=== PATIENT | female | born 1955 | race Caucasian/White ===

== ENCOUNTER → 2017-01-30 | Day surgery (SDC) | payer OTHER ==
[~2017-01-30] MED LIST: ALLEGRA ALLERG180 MG PO; ANASTROZOLE1 MG PO; BACTRIM DS TAB1 EACH PO; CALCIUM 600 +1 EAC1 PO; CHROMIUM PIC1000 MCG PO; CIPRO500 MG PO; COLACE100 MG PO; COREG6.25 MG PO; CRANBERRY500 M1 PO; DIPHENHYDRAMINE25 M3 PO; EYE DROP15 ML OP; FEMARA2.5 MG PO; FLAGYL500 MG PO; HUMALOG100 UNIT/1 SUBQ; HUMALOG100 UNIT/2 SUBQ; HYDRALAZINE 2525 MG PO; LEVALBUTER1.25 MG/0. INH; LEVAQUIN 500 M500 M2 PO; LEVEMIR SUBQ; MEGARED OMEGA-1 EAC1 PO; METFORMIN HCL500 MG PO; NEURONTIN 300M300 M2 PO; NOVOLOG100 UNIT/1 SUBQ; OXYCODONE HCL 55 MG PO; PREDNISONE 20 M20 MG PO; PRINIVIL20 M1 PO; SELENIUM200 MC3 PO; TOUJEO MAX300 UNIT/1 SUBQ; TRAMADOL 50 MG50 MG PO; TURMERIC500 M1 PO; VITAMIN D3400 UNIT PO; XGEVA120 MG/1.7 SQ; XOPENEX 0.63 MG/3 M1 INH
[2017-01-30 09:26] LABS: ALBUMIN 3.6 g/dL (3.4-5.0); CREATININE 0.9 mg/dL (0.6-1.3); POTASSIUM 4.7 mmol/L (3.5-5.1); TOTAL BILIRUBIN 0.5 mg/dL (<0.1-1.0); TOTAL PROTEIN 7.5 g/dL (6.4-8.2)
--- NOTE | 2017-02-08 07:41 | OP ---
[address] [address] OPERATIVE REPORT Name: NBAMICHELLE CHENCHO Room: [facility].#: [id number] Admission: 01/30/17 Attend Phys: Sugar Reich DO Discharge: Date of : 53 Report #: [id number] THIS REPORT FOR: //name// CC: Lisa Kenneyissa Elie DATE OF SERVICE: 01/30/2017 INDICATIONS: The patient is a 61-year-old female with history of breast cancer, status post bilateral mastectomy here today for a right-sided chemo port insertion accessed through the right internal jugular vein. Risks of the surgery were discussed to include bleeding, infection, injury to surrounding structures including possible pneumothorax with need for a chest tube, and risk of anesthesia. She acknowledges her understanding and wishes to proceed with surgery. Written and verbal consent were both obtained. DESCRIPTION OF PROCEDURE: After entering the operating room, SCDs were applied bilaterally to both calves and Bovie pad was placed on the lower abdomen. General anesthesia using LMA was performed without any issue. The patient was then prepped and draped in the usual sterile fashion to include the right neck and chest bilaterally. After placing the patient in Trendelenburg with her head turned 45 degrees to the left, needle was introduced to the right internal jugular vein using ultrasound guidance. After noting adequate venous blood return to the introducer needle syringe, a guidewire was placed without difficulty and the needle was removed. Fluoroscopy was then used to confirm satisfactory position of the guidewire to the superior vena cava just proximal to the right atrium. Using an 11 blade scalpel, a small incision was extended from the guidewire and a dilator and sheath was passed over the guidewire. Dilator and guidewire were then removed and the catheter was then passed into the sheath with adequate venous blood return indicating good placement. Fluoroscopy was again used to confirm adequate placement. An incision was then made inferior to the right clavicle and a subcutaneous pocket was made over the surface of the pectoralis major muscle. The tunneling needle was then introduced through the incision in the right side of the neck, passed over the right clavicle, and into the pocket in the superior right chest. The catheter was attached to the tunneling needle and pulled into the previously made pocket. The locking cap was attached to the end of the catheter and the chemo port was attached to the catheter and the locking cap was used to secure the catheter to the chemo port. The chemo port was flushed with normal saline and aspirated to confirm adequate functioning. The catheter was then flushed with dilute heparin solution. The chemo port was then placed into the subcutaneous pocket and secured in place using 2 Prolene sutures. Hemostasis was verified at this time. The subcutaneous tissue was approximated using 3 Vicryl sutures and the skin was approximated using Monocryl in a running fashion. The neck incision was approximated using 1 subcutaneous stitch of Monocryl. [place] [address] OPERATIVE REPORT Name: MICHELLE ARANGO [id number] Admission: 01/30/17 Attend Phys: Sugar Reich, Discharge: Date of : 53 Report #: [id number] was then aspirated with needle and syringe yielding about 45 mL of serosanguineous fluid. Incisions were clean, Mastisol was placed around the incisions and incision sites were dressed with Steri-Strips, 4 x 4 dressings, and Tegaderms over the top. An estimated blood loss was about 10 mL. All needle, sponge and instrument counts were correct. The patient tolerated the procedure well and left the operating room in good condition. <ELECTRONICALLY SIGNED> By: Sugar Reich DO 02/08/17 0741 [id number] Reich DO /nt
== END | disposition home or self-care (01) ==
LOC: M.SUR 08:47
PROVIDERS: Surgery
DX: Z45.2 Encounter for adjustment and management of vascular access device (principal); L76.34 Postprocedural seroma of skin and subcutaneous tissue following other procedure; Z85.3 Personal history of malignant neoplasm of breast; R07.9 Chest pain, unspecified; Z80.3 Family history of malignant neoplasm of breast

== ENCOUNTER 2017-03-16 20:58 | Emergency (ER) | payer OTHER ==
[~2017-03-16] VITALS: Ht 160 cm; Wt 100.2 kg
[~2017-03-16 20:58] MED LIST changes: -ALLEGRA ALLERG180 MG PO; -BACTRIM DS TAB1 EACH PO; -COLACE100 MG PO; -COREG6.25 MG PO; -DIPHENHYDRAMINE25 M3 PO; -FEMARA2.5 MG PO; -HUMALOG100 UNIT/1 SUBQ; -HUMALOG100 UNIT/2 SUBQ; -HYDRALAZINE 2525 MG PO; -LEVALBUTER1.25 MG/0. INH; -TOUJEO MAX300 UNIT/1 SUBQ
[2017-03-16] MEDS ORDERED: ALLEGRA ALLERG180 MG PO (21:06)
[2017-03-16 21:39] LABS: HEMATOCRIT 26.4 % (37.0-47.0); HEMOGLOBIN 8.7 gm/dL (12.0-15.0); MCH 30.8 pg (26.0-34.0); MCHC 32.9 g/dL (28.0-37.0); MCV 93.6 fL (80.0-100.0); NUCLEATED RBCS 0 /100WBC; PLATELET COUNT* 272 thou/uL (150-400); RBC 2.82 mil/uL (4.20-5.00); RDW-CV 14.2 % (10.5-14.5)
[2017-03-16 21:48] LABS: CALCIUM 8.7 mg/dL (8.5-10.1); CREATININE 0.8 mg/dL (0.6-1.3); POTASSIUM 4.2 mmol/L (3.5-5.1)
[2017-03-16 21:49] LABS: WBC 58.8 thou/uL (4.0-11.0)
[2017-03-16 21:52] LABS: ALBUMIN 3.1 g/dL (3.4-5.0); TOTAL BILIRUBIN 0.3 mg/dL (<0.1-1.0); TOTAL PROTEIN 6.3 g/dL (6.4-8.2)
[2017-03-16 22:01] LABS: ABSOLUTE LYMPHOCYTES 2.4 thou/uL (0.8-5.3); ABSOLUTE NEUTROPHILS 56.4 thou/uL (1.6-8.1); PLATELET ESTIMATE ADEQUATE
[2017-03-17] MEDS ORDERED: FLAGYL500 MG PO (00:16)
[2017-03-17 01:30] VITALS: BP 184/70
[2017-07-12] MEDS ORDERED: LEVALBUTER1.25 MG/0. INH (15:47)
[2017-07-12] MEDS ORDERED: HYDRALAZINE 2525 MG PO (15:48)
[2017-07-12] MEDS ORDERED: COREG6.25 MG PO (15:48)
[2017-07-12] MEDS ORDERED: HUMALOG100 UNIT/1 SUBQ (15:49)
[2017-07-12] MEDS ORDERED: TOUJEO MAX300 UNIT/1 SUBQ (15:51)
[2017-07-12] MEDS ORDERED: HUMALOG100 UNIT/2 SUBQ (15:51)
[2017-07-28] MEDS ORDERED: TRAMADOL 50 MG50 MG PO (15:51)
== END 2017-03-17 01:30 | disposition home or self-care (01) ==
LOC: M.ERS 20:58
PROVIDERS: Physician Assistant
DX: D72.829 Elevated white blood cell count, unspecified (principal); R19.7 Diarrhea, unspecified; E11.9 Type 2 diabetes mellitus without complications; I10 Essential (primary) hypertension; E78.5 Hyperlipidemia, unspecified; Z98.890 Other specified postprocedural states; Z90.710 Acquired absence of both cervix and uterus; Z90.49 Acquired absence of other specified parts of digestive tract; Z85.3 Personal history of malignant neoplasm of breast; Z79.4 Long term (current) use of insulin

== ENCOUNTER → 2017-04-04 | Outpatient (CLI) | payer OTHER ==
[~2017-04-04] MED LIST changes: +ALLEGRA ALLERG180 MG PO; +BACTRIM DS TAB1 EACH PO; +COLACE100 MG PO; +COREG6.25 MG PO; +DIPHENHYDRAMINE25 M3 PO; +FEMARA2.5 MG PO; +HUMALOG100 UNIT/1 SUBQ; +HUMALOG100 UNIT/2 SUBQ; +HYDRALAZINE 2525 MG PO; +LEVALBUTER1.25 MG/0. INH; +TOUJEO MAX300 UNIT/1 SUBQ
== END ==
LOC: M.ULTRA 09:42
DX: Z51.11 Encounter for antineoplastic chemotherapy (principal); C50.912 Malignant neoplasm of unspecified site of left female breast; E55.9 Vitamin D deficiency, unspecified; D64.9 Anemia, unspecified

== ENCOUNTER 2017-04-18 12:14 | Inpatient (IN) | payer OTHER ==
[~2017-04-18] VITALS: Ht 160 cm; Wt 95.7 kg
--- NOTE | ~2017-04-18 | CON ---
[address] [address] CONSULTATION Name: MICHELLE ARANGO Room: [address] IN M.R.#: [id number] Admission: 04/18/17 Attend Phys: Sarmad Britt MD Discharge: 04/23/17 Date of : 53 Report #: [id number] THIS REPORT FOR: //name// CC: Sarmad Delgadillo DATE OF SERVICE: 04/19/2017 HEMATOLOGY ONCOLOGY CONSULTATION PRIMARY CARE PHYSICIAN: Dr. Luzmaria Delgadillo. REASON FOR CONSULTATION: History of breast cancer, currently undergoing adjuvant chemotherapy, admitted with urinary tract infection and anemia. HISTORY OF PRESENT ILLNESS: The patient is a 61-year-old with a history of INCOMPLETE DICTATION. By: [id number] Sanchez MD /nt
[~2017-04-18 12:14] MED LIST changes: -BACTRIM DS TAB1 EACH PO; -COLACE100 MG PO; -COREG6.25 MG PO; -DIPHENHYDRAMINE25 M3 PO; -FEMARA2.5 MG PO; -HUMALOG100 UNIT/1 SUBQ; -HUMALOG100 UNIT/2 SUBQ; -HYDRALAZINE 2525 MG PO; -LEVALBUTER1.25 MG/0. INH; -TOUJEO MAX300 UNIT/1 SUBQ
[2017-04-18 12:21] VITALS: BP 150/68
[2017-04-18 13:14] LABS: MCH 31.2 pg (26.0-34.0); MCHC 32.6 g/dL (28.0-37.0); MCV 95.8 fL (80.0-100.0); MPV 7.2 fl. (7.2-11.1); NUCLEATED RBCS 1 /100WBC; PLATELET COUNT* 422 thou/uL (150-400); RBC 2.05 mil/uL (4.20-5.00); RDW-CV 18.5 % (10.5-14.5); WBC 35.8 thou/uL (4.0-11.0)
[2017-04-18 13:23] LABS: CALCIUM 8.8 mg/dL (8.5-10.1); CREATININE 0.8 mg/dL (0.6-1.3); POTASSIUM 3.8 mmol/L (3.5-5.1)
[2017-04-18 13:24] LABS: HEMATOCRIT 19.7 % (37.0-47.0); HEMOGLOBIN 6.4 gm/dL (12.0-15.0)
[2017-04-18 13:39] LABS: URINE BILIRUBIN NEGATIVE (Negative); URINE BLOOD TRACE (Negative); URINE COLOR STRAW; URINE GLUCOSE-RANDOM NEGATIVE (Negative); URINE KETONES NEGATIVE (Negative); URINE PROTEIN NEGATIVE (Negative); URINE UROBILINOGEN 0.2 E.U./dl (0.2-1.0)
[2017-04-18 13:39] LABS: ALBUMIN 2.9 g/dL (3.4-5.0); TOTAL BILIRUBIN 0.3 mg/dL (<0.1-1.0); TOTAL PROTEIN 6.4 g/dL (6.4-8.2)
[2017-04-18 13:43] LABS: URINE CLARITY HAZY; URINE LEUKOCYTES-REFLEX 3+ (Negative); URINE NITRITE-REFLEX POSITIVE (Negative)
[2017-04-18 13:51] LABS: SQUAMOUS 0-3 Few /LPF (0-3); WBC CLUMPS Few (None Seen)
[2017-04-18 13:52] LABS: BACTERIA-REFLEX 1-9 Few /HPF (None Seen); CASTS None Seen /LPF (None Seen); CRYSTALS None Seen /LPF (None Seen); MUCUS None Seen strn/LPF (None Seen); URINE RBC 3-10 Few /HPF (0-2)
[2017-04-18 14:17] LABS: ABSOLUTE BASOPHILS 0.7 thou/uL (0.0-0.2); ABSOLUTE LYMPHOCYTES 2.9 thou/uL (0.8-5.3); ABSOLUTE MONOCYTES 4.7 thou/uL (0.0-1.2); ABSOLUTE NEUTROPHILS 27.6 thou/uL (1.6-8.1)
[2017-04-18 14:18] LABS: POLYCHROMASIA Occasional
[2017-04-18 14:19] LABS: HYPOCHROMASIA 1+; PLATELET ESTIMATE ADEQUATE
[2017-04-18 14:20] LABS: ANISOCYTOSIS 1+; MICROCYTES 1+
[2017-04-18 16:21] VITALS: BP 141/62
[2017-04-18 17:14] VITALS: BP 166/66
[2017-04-18 18:23] VITALS: BP 158/69; BP 173/64; BP 174/73; BP 182/77
[2017-04-18 20:00] VITALS: BP 158/69
--- NOTE | 2017-04-18 20:16 | NUR ---
PT ARRIVED TO UNIT AT APPROX. 1640. PT. A/OX4, VSS, MONITOR PLACED TRACING SR. PT. C/O OF CHRONIC PAIN IN LE, POSSIBLE NEUROPATHY 04/01 CURRENTLY. PT. ON RA @ 92%. FULL ASSESSMENT AND ADMISSION PROCESS COMPLETED, REFER TO CHARTING. RIGHT CHEST PORT-A-CATH ACCESSED IN ER WITH NS AT 100ML/HR PER. APR. PT. ORIENTED TO ROOM, AWARE OF PLAN OF CARE FOR 1 UNIT PRBC AND IV ANTIBIOTICS FOR UTI. RECEIVED CALL BACK FROM DR. ARAUZ FOR CONSULT, NEW ORDERS RECEIVED FOR CHEST XRAY AND CBC DIFF IN A.M. 1800 ANTIBIOTICS NOT ON UNIT AT 1800, BLOOD BANK CALLED THAT BLOOD WAS READY. BLOOD TRANSFUSION STARTED AT THIS TIME, DELAYING ANTIBIOTIC INFUSIONS. HOURLY ROUNDING COMPLETED THROUGH OUT THE DAY FOR PT. SAFETY.
[2017-04-19] VITALS: BP 161/61
--- NOTE | 2017-04-19 03:19 | NUR ---
ASSUMED CARE AT 1999, REPORT RECEIVED FROM DYLAN DRAPER. PATIENT ALERT/ORIENTED X4, SITTING UP IN BED WITH AT BEDSIDE. ON TELE, SR. ON ROOM AIR, NO SOB NOTED, SATS PER CONT PULSE OX: 94%. RIGHT CHEST PAC NOTED WITH 1 UNIT OF PRBC'S INFUSING, NO SIGNS TRANSFUSION REACTION NOTED. UP WITH ASSIST TO BATHROOM. DENIES NEEDS. STATES HAVING PAIN TO FEET/LEGS, MEDS PER MAR WITH RELIEF NOTED. DR. SCHULTZ NOTIFIED REGARDING MEDICATION CLARIFICATION, ORDERS RECEIVED AND NOTED. REFUSING SCD'S. CALL LIGHT WITHIN REACH, ENCOURAGED TO CALL FOR NEEDS.
[2017-04-19 04:03] VITALS: BP 138/60
[2017-04-19 05:22] LABS: ABSOLUTE BASOPHILS 0.1 thou/uL (0.0-0.2); ABSOLUTE EOSINOPHILS 0.1 thou/uL (0.0-0.7); ABSOLUTE LYMPHOCYTES 1.2 thou/uL (0.8-5.3); ABSOLUTE MONOCYTES 2.9 thou/uL (0.0-1.2); ABSOLUTE NEUTROPHILS 27.9 thou/uL (1.6-8.1); BASOPHILS 0.3 %; EOSINOPHILS 0.2 %; HEMATOCRIT 22.8 % (37.0-47.0); HEMOGLOBIN 7.6 gm/dL (12.0-15.0); LYMPHOCYTES 3.7 %; MCH 31.3 pg (26.0-34.0); MCHC 33.4 g/dL (28.0-37.0); MCV 93.7 fL (80.0-100.0); MPV 7.7 fl. (7.2-11.1); NUCLEATED RBCS 1 /100WBC; PLATELET COUNT* 357 thou/uL (150-400); POLYS 86.8 %; RBC 2.43 mil/uL (4.20-5.00); WBC 32.1 thou/uL (4.0-11.0)
[2017-04-19 05:23] LABS: CALCIUM 8.2 mg/dL (8.5-10.1); CREATININE 1.1 mg/dL (0.6-1.3); POTASSIUM 3.9 mmol/L (3.5-5.1)
[2017-04-19 07:30] VITALS: BP 150/60
--- NOTE | 2017-04-19 08:00 | NUR ---
AM HEMOGLOBIN LEVEL SENT TO DR. SCHULTZ VIA [facility], NO RETURN CALL NOTED. REPORT GIVEN TO ONCOMING NURSE. WILL MONITOR.
--- NOTE | 2017-04-19 10:28 | NUR ---
CM ASSESSMENT: Pt is A&O. Resides at home with her , is at bedside. Independent with ADLs, Pt does not drive any longer. No DME. Hx of [facility]. No hx of SNF. Pt reports having a strong support sx. Pt does not anticipate having any DC needs. Goal is to return home once medically stable. Pt is unsure of the POC, waiting to see Dr. Saleh for dc needs.
--- NOTE | 2017-04-19 10:40 | NUR ---
RECEIVED PT CARE 0700. PT IS ALERT AND ORIENTED X4. VSS. DIRECTOR MEDICAL WRITING TRACING SR. PATIENT DENIES SOA. O2 SAT 94% ON ROOM AIR. STOOL SAMPLE SENT TO LAB. AM ASSESSMENT CHARTED. MEDS PER MAR. SHE IS UP INDEPENDENTLY IN ROOM WITH BATHROMM PRIVILEDGES. GAIT IS STEADY. IVF INFUSING. KEEPING CALL LIGHT WITHIN REACH. WILL CONTINUE TO MONITOR.
[2017-04-19 12:00] VITALS: BP 199/78
[2017-04-19 16:00] VITALS: BP 134/71
--- NOTE | 2017-04-19 18:58 | NUR ---
PATIENT PROGRESSING TOWARDS GOALS. IV SALINE LOCKED. PAIN CONTROLLED WITH ORAL PAIN MEDICATION. UP INDEPENDENTLY IN ROOM. GAIT IS STEADY. TOLERATING HER DIET WELL WITHOUT NAUSEA AND VOMITING. PLANNING FOR US GUIDED BIOPSY TOMORROW OF HER LYMPH NODES. MODERATED BOWEL MOVEMENT THIS AM AND STOOL SENT FOR C-DIFF. C-DIFF NEGATIVE. NO COMPLAINTS OF SOA THIS SHIFT. DISCUSSED PLAN OF CARE WITH DR ENRIQUE WITH ONCOLOGY THIS EVENING. PATIENT UPDATED ON PLAN OF CARE. KEEPING CALL LIGHT WITHIN REACH. WILL CONTINUE TO MONITOR.
[2017-04-19 19:30] VITALS: BP 163/71
[2017-04-20] VITALS: BP 153/62
[2017-04-20 04:12] VITALS: BP 154/67
--- NOTE | 2017-04-20 04:42 | NUR ---
ASSUMED CARE AT 1930, ASSESSMENT CHARTED. PATIENT ALERT/ORIENTED X4, SITTING UP IN BED WATCHING TV. UP AD ZAY IN ROOM. DENIES PAIN OR NEEDS. REFUSING SCD'S. DR. ENAMORADO NOTIFIED REGARDING DISCONTINUING HER PO VANCO SINCE CDIFF NEGATIVE, ORDERS RECEIVED AND NOTED. UPDATED PATIENT ON PLAN OF CARE. MEDS PER APR. REMAINS IN ISOLATION FOR ESBL OF URINE. CALL LIGHT WITHIN REACH, ENCOURAGED TO CALL FOR NEEDS.
[2017-04-20 06:36] LABS: ABSOLUTE BASOPHILS 0.1 thou/uL (0.0-0.2); ABSOLUTE EOSINOPHILS 0.1 thou/uL (0.0-0.7); ABSOLUTE LYMPHOCYTES 0.9 thou/uL (0.8-5.3); ABSOLUTE MONOCYTES 2.4 thou/uL (0.0-1.2); ABSOLUTE NEUTROPHILS 22.8 thou/uL (1.6-8.1); BASOPHILS 0.4 %; EOSINOPHILS 0.4 %; HEMATOCRIT 23.5 % (37.0-47.0); HEMOGLOBIN 7.7 gm/dL (12.0-15.0); LYMPHOCYTES 3.3 %; MCH 31.2 pg (26.0-34.0); MCHC 32.8 g/dL (28.0-37.0); MCV 95.2 fL (80.0-100.0); MONOCYTES 9.2 %; MPV 7.2 fl. (7.2-11.1); NUCLEATED RBCS 1 /100WBC; PLATELET COUNT* 340 thou/uL (150-400); POLYS 86.7 %; RBC 2.47 mil/uL (4.20-5.00); RDW-CV 19.4 % (10.5-14.5); WBC 26.3 thou/uL (4.0-11.0)
[2017-04-20 06:48] LABS: ALBUMIN 2.7 g/dL (3.4-5.0); CALCIUM 8.2 mg/dL (8.5-10.1); CREATININE 1.1 mg/dL (0.6-1.3); POTASSIUM 3.9 mmol/L (3.5-5.1); TOTAL BILIRUBIN 0.3 mg/dL (<0.1-1.0); TOTAL PROTEIN 6.1 g/dL (6.4-8.2)
[2017-04-20 07:40] VITALS: BP 137/58
--- NOTE | 2017-04-20 07:40 | NUR ---
RECIEVED REPORT AND ASSUMED CARE OF PT @ 0730. PT IS A/O X4, VSS, ON RA SAT @ 93%. TRACING NSR ON MONITOR. PT DENIES PAIN AT TIME OF ASSESSMENT. PT IS UP AD ZAY AND ENCOURAGED TO GET UP TO CHAIR AND AMBULATE MUCH TOLERATED.PT UPCOMING PROCEDURE DISCUSSED AND CONSENT OBTAINED. PT RESTING IN BED WITH CALL LIGHT AND PERSONAL BELONGINGS IN REACH. PT REFUSED LONG ACTING INSULIN AT MORNING MED PASS. PT WENT DOWN FOR PROCEDURE @ 09. STOOL SAMPLE OBTAINED @ 09 AND SENT DOWN FOR OCCULT TESTING-RESULTS WERE NEGATIVE.
--- NOTE | 2017-04-20 08:00 | NUR ---
REPORT GIVEN TO ONCOMING NURSE. WILL MONITOR.
--- NOTE | 2017-04-20 11:32 | CON ---
[address] [address] CONSULTATION Name: MICHELLE ARANGO Room: [address] IN M.R.#: [id number] Admission: 04/18/17 Attend Phys: Sarmad Britt MD Discharge: Date of : 53 Report #: [id number] THIS REPORT FOR: //name// CC: Sarmad Gonzalez Belénbelia Delgadillo DATE OF SERVICE: 04/19/2017 INFECTIOUS DISEASE CONSULTATION ATTENDING PHYSICIAN: Sarmad Britt MD REASON FOR EVALUATION: Complicated urinary tract infection, likely pyelonephritis. HISTORY OF PRESENT ILLNESS: Chart reviewed, patient examined. This is a 61-year-old woman with a known history of breast cancer undergoing her prescribed course of chemotherapy, was evaluated, was noted to have some burning with initial urination, some dysuria, some temperature elevations and was seen in the outpatient Oncology [facility]. Urine was collected. It was confirmed to have pyuria now with growth of Escherichia coli, reportedly extended spectrum beta lactamase producing. She was referred for admission. Generally, she has not been feeling well, does have some degree of anorexia and has had some tachypnea as well. Urine culture from here growing gram-negative rods. She was started empirically on piperacillin and tazobactam. Blood cultures are sterile thus far. ALLERGIES: ALBUTEROL, SIMVASTATIN, ATORVASTATIN AND ROSUVASTATIN. CURRENT MEDICATIONS: Include carvedilol, hydralazine, pantoprazole, insulin, enoxaparin, tramadol, Zosyn, vancomycin orally, insulin lispro, ondansetron and analgesics as needed. PAST MEDICAL HISTORY: Known history of breast cancer, diabetes mellitus, hypertension, hyperlipidemia, previous appendectomy, cholecystectomy, hysterectomy and . SOCIAL HISTORY: Nonsmoker and no ethanol. FAMILY HISTORY: Noncontributory. REVIEW OF SYSTEMS: As above. Does admit to some mild dyspnea. She has had some anorexia as well. PHYSICAL EXAMINATION: [place] [address] CONSULTATION Name: MICHELLE ARANGO Room: [address] IN [facility]#: [id number] Admission: 04/18/17 Attend Phys: Sarmad Britt MD Discharge: Date of : 53 Report #: [id number] GENERAL: She is alert, cooperative, in mild to moderate distress. VITAL SIGNS: Temperature 98.1, pulse 91, respirations 16 and blood pressure 199/78. SKIN: Warm and dry. HEENT: Alopecia. NECK: Supple. LUNGS: Diminished breath sounds and has occasional crackle at the bases. HEART: Regular. No appreciated murmur. CHEST: Has an indwelling tunneled catheter in place. ABDOMEN: Soft, obese and nontender. There are no peritoneal signs. GENITOURINARY: Deferred. RECTAL: Deferred. LABORATORY DATA: Lactic acid 1.0. Electrolytes: Sodium 140, potassium 3.8, chloride 105, bicarbonate is 28, anion gap of 7, BUN and creatinine of 12 and 0.8 and glucose of 176. LFTs unremarkable with exception of alkaline phosphatase of 200. Albumin of 2.9 and total protein 6.4. Estimated GFR of 73. Urinalysis: 6-25 white cells, 1-9 bacteria. CBC: White count of 35.8, H and H of 6.4 and 19.7, platelets of 422, has elevated basophils of 700 and monocytes of 4700. Chest x-ray: No acute process. ASSESSMENT: Complicated urinary tract infection may well have pyelonephritis. We will dose with gentamicin ____Zosyn pending the results of the testing. Although she is somewhat improved since admission, I think she is still fairly tenuous. I think she is a risk for other types of nosocomial related infectious complications as well. We will add incentive spirometry and we will adjust antibiotics as required. Did discuss with the patient. <ELECTRONICALLY SIGNED> By: Mayito Bergman MD 04/20/17 1132 [id number] Bergman MD /nt
[2017-04-20 12:12] VITALS: BP 119/54
--- NOTE | 2017-04-20 13:49 | NUR ---
ORDERS RECEIVED AND COMPUTERIZED DOCUMENTATION REVIEWED. PATIENT IS UP WITHOUT ASSISTANCE IN HER ROOM. FULLYU INDEPENDENT. NO NEED FOR CONTINUED SKILLED P.T. SERVICES AT THIS TIME. THANK-YOU FOR THIS REFERRAL. ANITRA CARRILLO,MPT
[2017-04-20 16:17] VITALS: BP 121/49
--- NOTE | 2017-04-20 18:31 | NUR ---
PT WENT DOWN FOR ULTRASOUND BIOPSY THIS MORNING AND BIOPSY WAS OBTAINED. PT BIOPSY SITE HAS VERY LITTLE BRUISING AND IS TENDER. PT A/O X4, BREATH SOUNDS CLEAR, NON-PRODUCTIVE COUGH BUT REFUSES TEASLON PEARLS, VSS. PT HAS DENIED PAIN ALL SHIFT. PT HAS BEEN UP AD ZAY IN ROOM WITH BRP. PT PROGRESSING TOWARDS GOAL, ROMAN MULLER. DISCUSSED PLAN OF CARE TO STAY A FEW MORE DAYS POSSIBLY ON IV ANTIBIOTICS.DR ENRIQUE WILL SEE PT TOMORROW MORNING. CALL LIGHT IN REACH. WILL CONTINUE TO MONITOR.
[2017-04-20 20:00] VITALS: BP 156/77
--- NOTE | 2017-04-20 20:00 | NUR ---
RECEIVED REPORT AND ASSUMED CARE OF PT, ASSESSMENT COMPLETED. PT AMBULATING AROUND ROOM INDEPENDENTLY WITH STEADY GAIT. LT LATERAL CHEST PUNCTURE WITHOUT REDNESS OR DRAINAGE, BRUISE NOTED. TELEMETRY ON SHOWING SR. NO COMPLAINTS VOICED. WILL CONT TO MONITOR AND ASSIST NEEDED.
[2017-04-21] VITALS (7 sets, daily range): BP systolic 101–172; BP diastolic 45–74
[2017-04-21 05:28] LABS: HEMATOCRIT 22.2 % (37.0-47.0); HEMOGLOBIN 7.3 gm/dL (12.0-15.0); MCH 31.4 pg (26.0-34.0); MCHC 32.8 g/dL (28.0-37.0); MCV 95.8 fL (80.0-100.0); MPV 7.2 fl. (7.2-11.1); NUCLEATED RBCS 0 /100WBC; PLATELET COUNT* 287 thou/uL (150-400); RBC 2.32 mil/uL (4.20-5.00); RDW-CV 19.3 % (10.5-14.5); WBC 16.9 thou/uL (4.0-11.0)
[2017-04-21 05:50] LABS: PREALBUMIN 13.4 mg/dL (18.0-35.7)
[2017-04-21 05:51] LABS: ALBUMIN 2.6 g/dL (3.4-5.0); CALCIUM 8.3 mg/dL (8.5-10.1); CREATININE 1.1 mg/dL (0.6-1.3); POTASSIUM 3.8 mmol/L (3.5-5.1); TOTAL BILIRUBIN 0.2 mg/dL (<0.1-1.0); TOTAL PROTEIN 5.9 g/dL (6.4-8.2)
[2017-04-21 06:11] LABS: ABSOLUTE LYMPHOCYTES 1.4 thou/uL (0.8-5.3); ABSOLUTE MONOCYTES 0.5 thou/uL (0.0-1.2); PLATELET ESTIMATE ADEQUATE; TOXIC GRANULATION 1+
[2017-04-21 06:12] LABS: ANISOCYTOSIS 1+; HYPOCHROMASIA 1+; POIKILOCYTOSIS 1+; POLYCHROMASIA 1+
--- NOTE | 2017-04-21 06:30 | NUR ---
SLEPT WELL TONIGHT. NO CHANGE IN ASSESSMENT. TELEMETRY CONT TO SHOW SR. NO COMPLAINTS VOICED. ADVANCING TOWARDS GOALS. HOURLY ROUNDING OBSERVED.
--- NOTE | 2017-04-21 08:00 | NUR ---
AM ASSESSMENT COMPLETE, DEFER TO COMPTUER CHARTING. FLOOR REPRESENTATIVE TRACKING SR, PALE IN COLOR. DENIES CHEST PAIN, DIZZINESS, SOA OR ANY DISCOMFORT AT THIS TIME. UP IN CHAIR FOR AM MEAL, CALL LIGHT WITHIN REACH. WILL MONITOR.
--- NOTE | 2017-04-21 13:35 | NUR ---
RECIEVED O.T. ORDER AND CHART REVIEWED. PT. HAS BEEN UP AD ZAY IN THE ROOM AND DENIES ANY O.T. NEEDED. O.T. SERVICES ARE NOT INDICATED AT THIS TIME.
--- NOTE | 2017-04-21 15:05 | NUR ---
ORDERS RECEIVED TO TRANSFER PATIENT TO MEDICAL FLOOR, REPORT CALLED TO CHRISTOPHE RICHARDSON WHOM VERBALIZED UNDERSTANDING.
--- NOTE | 2017-04-21 15:50 | NUR ---
PATIENT CAME TO THE FLOOR FROM TELE IN STABLE CONDITION. VITAL SIGNS STABLE ON ROOM AIR. PATIENT HAS NO COMPLAINTS AT THIS TIME. UP AD ZAY IN ROOM. EDUCATION HAS BEEN DONE AND QUESTIONS ANSWERED. CALL LIGHT IS IN REACH, WILL CONTINUE TO MONITOR.
--- NOTE | 2017-04-21 18:12 | NUR ---
PATIENT CAME FROM [facility] IN STABLE CONDITION, NO COMPLAINTS OF ANY PAIN TODAY. PATIENT IS VERY PLEASANT, UP AD ZAY IN ROOM VERY STEADY ON FEET. PORT IS ACCESSED IN RIGHT UPPER CHEST AND WORKS WELL. CALL IGHT IS IN REACH, WILL CONTINUE TO MONITOR.
--- NOTE | 2017-04-21 19:25 | CON ---
[address] [address] CONSULTATION Name: MICHELLE ARANGO Room: [address] IN M.R.#: [id number] Admission: 04/18/17 Attend Phys: Sarmad Britt MD Discharge: Date of : 53 Report #: [id number] THIS REPORT FOR: //name// CC: Sarmad Delgadillo MD DATE OF SERVICE: 04/19/2017 PRIMARY CARE PHYSICIAN: Dr. Luzmaria Delgadillo. REASON FOR CONSULTATION: History of breast cancer, currently on adjuvant chemotherapy with Taxol, which she received a week ago. She is currently admitted into the hospital with urinary tract infection and anemia. HISTORY OF PRESENT ILLNESS: The patient is well known to me and followed in our clinic for her breast cancer. She underwent recent bilateral mastectomy with left axillary lymph node dissection, on adjuvant chemotherapy, received Adriamycin and Cytoxan in dose-dense fashion for 4 cycles and recently started on Taxol in dose-dense fashion approximately a week ago. She did receive Neulasta injection, the day after chemotherapy. She had some urinary symptoms, roughly a week ago, which prompted urinalysis which was completely clear, but urine cultures, however, did grow E. coli, which is ESBL. She was contacted with this information and had some urinary symptoms, which have been worsened. She was sent to the [facility], where she had a repeat UA which was positive with positive nitrites and bacteria and was admitted into the hospital, currently on antibiotics with Zosyn and also a dose of gentamicin. As mentioned, she also has leukocytosis, which is again could be multifactorial secondary to her Neulasta injection done recently a week ago and also possible urinary tract infection. She does not have any obvious evidence of diarrhea. Stool C. diff has been negative. She did receive a unit of packed RBC. Prior to, she did have extensive workup done for her anemia in the past including stool Hemoccults which have been twice at least roughly 10 days ago and also iron and B12 and folic acid studies, which were all negative. The patient herself denies any blood per rectum or melena. REVIEW OF SYSTEMS: A 12-point review of system was reviewed, which was essentially negative except for the above-mentioned. PAST MEDICAL HISTORY: As mentioned, diabetes, hypertension, osteoporosis, diabetic retinopathy with history of breast cancer and currently on chemotherapy. SOCIAL HISTORY: She is and lives with her . Denies any alcohol, tobacco [place] [address] CONSULTATION Name: MICHELLE ARANGO Room: [address] IN [facility]#: [id number] Admission: 04/18/17 Attend Phys: Sarmad Britt MD Discharge: Date of : 53 Report #: [id number] ALLERGIES: Include LIPITOR, CRESTOR and ZOCOR. FAMILY HISTORY: Breast cancer diagnosed, mother had breast cancer at 60s as well as kidney cancer, at age 67. Paternal grandmother diagnosed with breast cancer. CURRENT LABORATORY DATA: Include WBC 32.1, hemoglobin 7.6 which improved from 6.4 after a unit of packed RBC and hematocrit 22.8 and platelets of 357 with absolute neutrophil count of 27.9 and monocytes are 2.9. Sodium 141, potassium 3.9, chloride 105, bicarbonate 27, anion gap BUN 10, creatinine 1.1, glucose 197 and calcium 8.2. Total bilirubin was 0.3, AST 31, ALT 19, alkaline phosphatase 200, total protein 6.4, albumin 2.9 and lipase 46. IMAGING STUDIES: The patient had a chest x-ray done, so far showed no acute pulmonary process. The blood cultures so far showed no growth and urine cultures currently are growing gram-negative rods. The patient did have prior urine cultures done which did reveal E. coli ESBL positive, which is sensitive to meropenem, gentamicin and piperacillin. PHYSICAL EXAMINATION: VITAL SIGNS: Temperature of 96.7, heart rate 94, blood pressure 134/71 which is measured from her right leg. GENERAL: No acute distress. HEENT: Mucous membranes are moist, anicteric, atraumatic. Oropharynx is clear with no evidence of mucositis. NECK: Supple, with no obvious lymphadenopathy. Trachea in the midline. No thyromegaly. LUNGS: Clear to auscultation and percussion. No rales, rhonchi or crackles. HEART: S1, S2. No murmur, rub or gallop. ABDOMEN: Soft, nontender, nondistended. EXTREMITIES: No edema, cyanosis or clubbing. The patient does have some lymphedema in the left upper extremity. CHEST: Chest wall examination does have a bilateral mastectomy scars which have healed well. There is some concern for a mild seroma in the left axillary area with no obvious concern of lymphadenopathy which was evident on her prior exams. ASSESSMENT AND PLAN: 1. The patient is a 61-year-old with history of breast cancer, status post bilateral mastectomy with left axillary dissection, currently on chemotherapy with Taxol and Neulasta support, which she did receive roughly a week ago. She is currently admitted with a urinary tract infection, prior urine cultures did grow Escherichia coli extended-spectrum beta-lactamase, currently on antibiotics [address] [address] CONSULTATION Name: MICHELLE ARANGO Room: [address] ADM IN M.R.#: [id number] Admission: 04/18/17 Attend Phys: Sarmad Britt MD Discharge: Date of : 53 Report #: [id number] including Zosyn and gentamicin and followed by infectious disease specialist. We would follow upon their recommendations and repeat urine cultures are currently pending at this point, growing gram-negative rods. She is currently afebrile. Her leukocytosis, which again could be secondary to her recent Neulasta injection, but also could be secondary to underlying urinary infection too. No obvious concern for Clostridium difficile as no diarrhea and stool Clostridium diff has also been negative. The patient does have a Port-A-Cath which could be used for IV antibiotics, which could be arranged at home. I did talk to her about keeping her appointment with me next week; however, this could delay her chemotherapy. 2. She does have this left axillary adenopathy and originally scheduled to proceed with a biopsy of this lesion. While in the hospital, arrangements were made for her to proceed with Radiology. Ultrasound-guided biopsy of this lymph nodes. They would continue to follow up on the results. 3. Anemia. The patient, as mentioned, had extensive workup done in the past including stool Hemoccults have been negative and the iron studies, B12 and folate have all been normal range. I do feel her anemia is secondary to her ongoing chemotherapy. She did receive a unit of packed RBC. Would recheck again a stool Hemoccult to ensure that we are not dealing with obvious gastrointestinal bleeding. Again, would recommend supporting her with transfusions. I do feel that this is viral suppression with ongoing chemotherapy. <ELECTRONICALLY SIGNED> By: Lisa Sanchez MD 04/21/17 [id number] Sanchez MD /nt
[2017-04-22 00:03] VITALS: BP 141/64
[2017-04-22 03:34] VITALS: BP 117/53
[2017-04-22 08:00] VITALS: BP 174/73
--- NOTE | 2017-04-22 08:10 | NUR ---
PATIENT SLEPT WELL THROUGHOUT THE NIGHT WITHOUT ANY ISSUES. VSS ON RA. PAIN CONTROLLED WITH ORAL PAIN MEDICATION AND CHARTED. PATIENT IS UP AD-ZAY AND STEADY. PATIENT HAS REMAINED ON CONTACT ISOLATION AT THIS TIME. RIGHT CHEST PORT-SL. IV ABT GIVEN WITHOUT ANY ADVERSE SIDE EFFECTS NOTED. PATIENT INSTRUCTED TO USE CALL LIGHT WHEN NEEDING ASSISTANCE. HOURLY ROUNDS MADE. WILL CONTINUE WITH PLAN OF CARE AND NURSING TO MONITOR.
[2017-04-22 16:00] VITALS: BP 156/74
--- NOTE | 2017-04-22 20:13 | NUR ---
ASSUMED CARE THIS AM. A/O X 4, EAGER TO BE DISHCARGED TO HOME TODAY, HOWEVER, DUE TO ANEMIA, DOCTOR WOULD LIKE TO KEEP HER FOR TONIGHT AND RECHECK THE CBC IN THE AM. PATIENT DISTRAUGHT ABOUT NOT MAKING IT HOME IN TIME TO VISIT WITH CHILDREN. AT BEDSIDE, PATIENT TEARFUL. NO ACUTE DISTRESS NOTED, VITAL SIGHNS STABLE, DENIES PAIN OR DISCOMFORT. GAVI ABD ADMIN VIA PATENT RIGHT CHEST PORT WITHOUT DIFFICULTY, UP AD ZAY, CALL LIGHT IN REACH, CONT POC.
[2017-04-22 20:50] VITALS: BP 183/87
[2017-04-22 23:06] VITALS: BP 140/55
[2017-04-23 05:15] LABS: HEMATOCRIT 22.4 % (37.0-47.0); HEMOGLOBIN 7.5 gm/dL (12.0-15.0); MCH 31.7 pg (26.0-34.0); MCHC 33.6 g/dL (28.0-37.0); MCV 94.5 fL (80.0-100.0); MPV 7.2 fl. (7.2-11.1); RBC 2.37 mil/uL (4.20-5.00); RDW-CV 19.1 % (10.5-14.5); WBC 11.3 thou/uL (4.0-11.0)
--- NOTE | 2017-04-23 05:21 | NUR ---
PT SLEPT MOST OF SHIFT. ASSESSMENT DOCUMENTED. MEDS GIVEN PER E-MAR. PORT PATENT. NO REPORTS OF PAIN OR NAUSEA. DRESSING ON PORT CHANGED THIS SHIFT. WILL CONTINUE WITH PLAN OF CARE.
[2017-04-23 05:35] LABS: CALCIUM 8.2 mg/dL (8.5-10.1); CREATININE 1.1 mg/dL (0.6-1.3); POTASSIUM 3.9 mmol/L (3.5-5.1)
[2017-04-23 06:16] VITALS: BP 139/68
[2017-04-23 10:38] VITALS: BP 131/52
[2017-04-23] MEDS ORDERED: COLACE100 MG PO (11:07)
--- NOTE | 2017-04-27 15:45 | S ---
[address] [address] SURGICAL PATH RPT PROCEDURE Name: SINAI ARANGO Room: [address] IN M.R.#: [id number] Admission: 04/18/17 Date of : 53 Discharge: 04/23/17 Report #: [id number] Path Case #: [id number] PATHOLOGY REPORT COLLECTION DATE: 04/20/2017 RECEIVED DATE: 04/20/2017 SUBMITTING PHYS: Dr. Arvind Dupont OTHER PHYS: Dr. Luzmaria Reich SPECIMEN(S) RECEIVED: A.L axilla node #1 B.L axilla node #2 * * * * * * * * * * * * FINAL DIAGNOSIS: A. Left axilla node #1: - HIGH-GRADE ADENOCARCINOMA TYPICAL OF BREAST PRIMARY INVOLVING FIBROFATTY TISSUE, SPANNING AT LEAST 6 MM (SEE COMMENT). B. Left axilla node #2: - HIGH-GRADE ADENOCARCINOMA COMPATIBLE WITH BREAST PRIMARY INVOLVING FIBROFATTY TISSUE, SPANNING AT LEAST 5 MM (SEE COMMENT). COMMENT: In both specimens there is no recognizable lymph node. Both show identical histologic features of infiltrating high-grade adenocarcinoma with infiltrating nests and cords of pleomorphic cells with abundant eosinophilic cytoplasm suggesting apocrine features. Scattered ductal lumina are noted. These findings are histologically identical to the tumor seen previously in the left breast and axillary lymph nodes ([id number] and [id number]). Per review of Dr. Sanchez's consultation report dated 04/19/2017, this patient is currently on adjuvant chemotherapy with Taxol. Specimens A and B are reviewed with Dr. Kirk Brenner who agrees with the diagnoses. Discussed with Dr. Sanchez at approximately 1605 on 04/21/2017. At the request of Dr. Sanchez, breast tumor profile studies will be performed on A1 and an addendum report will be issued. (POLI:pit; 04/21/2017) PATHOLOGIST: Winston Mills M.D. REPORT ELECTRONICALLY SIGNED BY: Winston Mills M.D. DATE/TIME: 04/21/2017 16:09 * * * * * * * * * * * * GROSS PATHOLOGY: [place] [address] SURGICAL PATH RPT PROCEDURE Name: SINAI ARANGO Room: [address]#: [id number] Admission: 04/18/17 Date of : 53 Discharge: 04/23/17 Report #: [id number] Path Case #: [id number] A. The specimen is received in formalin, labeled "Sinai Arango and left axilla node", are four fibro-fatty hawkins-white to yellow needle cores ranging from 1.0 cm up to 1.4 cm in length and measuring 1.4 x 0.3 x 0.1 cm in aggregate. The specimen is entirely submitted in A1-A3. B. The specimen is received in formalin, labeled "Andrew, Sinai and left axilla node", are four fibro-fatty hawkins-white to yellow needle cores and its fragments ranging from 0.3 cm up to 0.8 cm in length and measuring 0.8 x 0.3 x 0.1 cm in aggregate. The specimen is entirely submitted in B1-B3. (SWS; 04/20/2017) CLINICAL HISTORY: A. 0.73 x 0.72 x 1.1 cm B. 0.86 x 0.81 x 0.75 cm INITIAL CPT CODE(S): A; 26940, 68484(4) B; 61762 Professional services performed [place] [facility] [place] [address] Technical services performed by [facility] at [address] [place] [address], [facility] [address], [place] [address]. PROCEDURE REPORT (Order Date: 04/25/2017 00:00) COMMENT: Quantitative image analysis was performed on block A1. Please see next page for scanned image of results. (AMJ 04/27/2017) PATHOLOGIST: Chapito Bruner M.D. REPORT ELECTRONICALLY SIGNED BY: Chapito Bruner M.D. DATE/TIME: 04/27/2017 15:[address] [facility] [address] [place] [address] PHONE: [phone] DIRECTOR: Kirk Brenner M.D. * * * END OF REPORT * * *
[2017-07-12] MEDS ORDERED: LEVALBUTER1.25 MG/0. INH (15:47)
[2017-07-12] MEDS ORDERED: HYDRALAZINE 2525 MG PO (15:48)
[2017-07-12] MEDS ORDERED: COREG6.25 MG PO (15:48)
[2017-07-12] MEDS ORDERED: HUMALOG100 UNIT/1 SUBQ (15:49)
[2017-07-12] MEDS ORDERED: HUMALOG100 UNIT/2 SUBQ (15:51)
[2017-07-12] MEDS ORDERED: TOUJEO MAX300 UNIT/1 SUBQ (15:51)
[2017-07-28] MEDS ORDERED: TRAMADOL 50 MG50 MG PO (15:51)
== END 2017-04-23 12:15 | disposition home or self-care (01) | DRG 872 ==
LOC: M.ERS 12:14 → M.TBA-ER 14:10 → M.2W 16:43 → M.3W 04-21 15:10
PROVIDERS: Family Medicine; Physician Assistant; ADMIT Internal Medicine
PROC: 30233N1 Transfusion of Nonautologous Red Blood Cells into Peripheral Vein, Percutaneous Approach (ICD-10-PCS; 2017-04-18)
PROC: 0HBU3ZX Excision of Left Breast, Percutaneous Approach, Diagnostic (ICD-10-PCS; principal; 2017-04-20)
DX: A41.9 Sepsis, unspecified organism (principal); N39.0 Urinary tract infection, site not specified; E46 Unspecified protein-calorie malnutrition; E44.1 Mild protein-calorie malnutrition; E11.9 Type 2 diabetes mellitus without complications; I10 Essential (primary) hypertension; E78.5 Hyperlipidemia, unspecified; M81.0 Age-related osteoporosis without current pathological fracture; C50.919 Malignant neoplasm of unspecified site of unspecified female breast; D64.81 Anemia due to antineoplastic chemotherapy; B96.20 Unspecified Escherichia coli [E. coli] as the cause of diseases classified elsewhere; Z68.37 Body mass index [BMI] 37.0-37.9, adult; Z79.899 Other long term (current) drug therapy; Z90.710 Acquired absence of both cervix and uterus; Z90.49 Acquired absence of other specified parts of digestive tract; Z88.8 Allergy status to other drugs, medicaments and biological substances; Z90.13 Acquired absence of bilateral breasts and nipples; Z80.9 Family history of malignant neoplasm, unspecified; Z82.49 Family history of ischemic heart disease and other diseases of the circulatory system; Z79.4 Long term (current) use of insulin

== ENCOUNTER → 2017-04-24 | Outpatient (CLI) | payer OTHER ==
[~2017-04-24] MED LIST changes: +BACTRIM DS TAB1 EACH PO; +COLACE100 MG PO; +COREG6.25 MG PO; +DIPHENHYDRAMINE25 M3 PO; +FEMARA2.5 MG PO; +HUMALOG100 UNIT/1 SUBQ; +HUMALOG100 UNIT/2 SUBQ; +HYDRALAZINE 2525 MG PO; +LEVALBUTER1.25 MG/0. INH; +TOUJEO MAX300 UNIT/1 SUBQ
[2017-04-24 08:17] VITALS: BP 138/46
--- NOTE | 2017-04-24 10:52 | NUR ---
ARRIVED AMBULATORY. MADE SELF COMFORTABLE IN RECLINER. PORT A CATH TO RIGHT UPPER CHEST FREE FROM SIGN OR INFECTION. PORT ACCESSED WITH OUT DIFFICULTY. GOOD BRISK BLOOD RETURN NOTED AND FLUSHED WTIH EASE. INFUSION COMPLETED AND TOLERATED WELL. PORT FLUSHED AND LEFT ACCESSED FOR USE WITH DAILY ATB THERAPY AND SCHEDULED CHEMO. DENEIS QUESTIONS OR NEEDS AT DISCHARGE.
== END ==
LOC: M.INFUS 07:48
DX: D64.9 Anemia, unspecified (principal); N39.0 Urinary tract infection, site not specified

== ENCOUNTER → 2017-04-25 | Outpatient (CLI) | payer OTHER ==
[2017-04-25 10:56] VITALS: BP 140/83
[2017-04-25 11:03] LABS: HEMATOCRIT 25.2 % (37.0-47.0); HEMOGLOBIN 8.3 gm/dL (12.0-15.0); MCH 31.5 pg (26.0-34.0); MCHC 33.1 g/dL (28.0-37.0); MCV 95.1 fL (80.0-100.0); MPV 6.8 fl. (7.2-11.1); RBC 2.65 mil/uL (4.20-5.00); RDW-CV 18.7 % (10.5-14.5); WBC 9.6 thou/uL (4.0-11.0)
[2017-04-25 11:08] LABS: CALCIUM 8.6 mg/dL (8.5-10.1); CREATININE 0.8 mg/dL (0.6-1.3); POTASSIUM 4.1 mmol/L (3.5-5.1)
== END ==
LOC: M.INFUS 02:57
PROVIDERS: Specialist
DX: D64.9 Anemia, unspecified (principal); N39.0 Urinary tract infection, site not specified

== ENCOUNTER → 2017-04-26 | Outpatient (CLI) | payer OTHER ==
[2017-04-26 10:30] VITALS: BP 133/63
== END ==
LOC: M.INFUS 04:41
DX: D64.9 Anemia, unspecified (principal); N39.0 Urinary tract infection, site not specified

== ENCOUNTER → 2017-04-27 | Outpatient (CLI) | payer OTHER ==
[2017-04-27 10:48] VITALS: BP 148/75
== END ==
LOC: M.INFUS 01:11
DX: D64.9 Anemia, unspecified (principal); N39.0 Urinary tract infection, site not specified

== ENCOUNTER → 2017-04-28 | Outpatient (CLI) | payer OTHER ==
[2017-04-28 10:35] VITALS: BP 157/74
--- NOTE | 2017-04-28 11:34 | NUR ---
ARRIVED AMBULATORY. MADE SELF COMFORTABLE IN RECLINER. PORT A CATH INTACT WITH DRESSING C/D/I. PORT PATENT WITH GOOD BRISK BLOOD RETURN AND EASY FLUSH. INFUSION COMPLETED AND TOLERATED WELL. PORT FLUSHED AND LEFT ACCESSED FOR LAST INVANZ INFUSION SCHEDULED FOR TOMORROW. DENIES NEEDS AT DISCHARGE.
== END ==
LOC: M.INFUS 01:46
DX: D64.9 Anemia, unspecified (principal); N39.0 Urinary tract infection, site not specified

== ENCOUNTER → 2017-04-29 | Outpatient (CLI) | payer OTHER | LOC: M.INFUS 08:00 | DX: E11.9 Type 2 diabetes mellitus without complications (principal); E78.5 Hyperlipidemia, unspecified; N30.00 Acute cystitis without hematuria ==

== ENCOUNTER → 2017-05-26 | Outpatient (CLI) | payer OTHER ==
[2017-05-26 09:55] LABS: URINE BILIRUBIN NEGATIVE (Negative); URINE BLOOD NEGATIVE (Negative); URINE CLARITY CLEAR; URINE COLOR YELLOW; URINE GLUCOSE-RANDOM 1+ (Negative); URINE KETONES NEGATIVE (Negative); URINE LEUKOCYTES-REFLEX NEGATIVE (Negative); URINE NITRITE-REFLEX NEGATIVE (Negative); URINE PROTEIN NEGATIVE (Negative); URINE SPECIFIC GRAVITY 1.015 (1.005-1.030); URINE UROBILINOGEN 0.2 E.U./dl (0.2-1.0)
[2017-05-26 10:06] LABS: ALBUMIN 3.4 g/dL (3.4-5.0); ALKALINE PHOSPHATASE 210 U/L (46-116); ANION GAP 8 mmol/L (7-16); BUN 12 mg/dL (7-18); CALCIUM 8.7 mg/dL (8.5-10.1); CHLORIDE 104 mmol/L (98-107); CHOLESTEROL 142 mg/dL (<200); CO2 27 mmol/L (21-32); CREATININE 0.9 mg/dL (0.6-1.3); GLUCOSE 198 mg/dL (70-99); HDL CHOLESTEROL 21 mg/dL (>40); LDL CHOLESTEROL 74 mg/dL (<100); SGOT 17 U/L (15-37); SGPT 29 U/L (30-65); SODIUM 139 mmol/L (136-145); TC:HDL 6.8 Ratio (Not establshd); TOTAL BILIRUBIN 0.3 mg/dL (<0.1-1.0); TOTAL PROTEIN 6.8 g/dL (6.4-8.2); TRIGLYCERIDE 235 mg/dL (<150); VLDL 47 mg/dL (<40)
[2017-05-26 10:07] LABS: SERUM ASSESSMENT Clear
[2017-05-26 21:10] LABS: GLYCOHEMOGLOBIN (HGB A1C) 7.7 % (4.8-5.6)
== END ==
LOC: M.LAB 09:33
PROVIDERS: Family Medicine
DX: E11.9 Type 2 diabetes mellitus without complications (principal); E78.5 Hyperlipidemia, unspecified; N30.00 Acute cystitis without hematuria

== ENCOUNTER → 2017-06-06 | Outpatient (CLI) | payer OTHER | LOC: M.ULTRA 09:46 | DX: Z51.11 Encounter for antineoplastic chemotherapy (principal); C50.912 Malignant neoplasm of unspecified site of left female breast; D64.9 Anemia, unspecified ==

== ENCOUNTER → 2017-06-21 | Outpatient (CLI) | payer OTHER ==
[2017-06-21 12:43] LABS: URINE BILIRUBIN NEGATIVE (Negative); URINE BLOOD NEGATIVE (Negative); URINE CLARITY CLEAR; URINE COLOR YELLOW; URINE GLUCOSE-RANDOM NEGATIVE (Negative); URINE KETONES NEGATIVE (Negative); URINE LEUKOCYTES TRACE (Negative); URINE NITRITE NEGATIVE (Negative); URINE PROTEIN NEGATIVE (Negative); URINE UROBILINOGEN 0.2 E.U./dl (0.2-1.0)
[2017-06-21 12:52] LABS: BACTERIA 1-9 Few /HPF (None Seen); CASTS None Seen /LPF (None Seen); CRYSTALS None Seen /LPF (None Seen); MUCUS 0-3 Light strn/LPF (None Seen); SQUAMOUS 0-3 Few /LPF (0-3); URINE RBC 0-2 Rare /HPF (0-2); URINE WBC 0-5 Rare /HPF (0-5)
== END ==
LOC: M.LAB 12:18
PROVIDERS: Family Medicine
DX: R30.0 Dysuria (principal)

== ENCOUNTER 2017-06-28 18:23 | Emergency (ER) | payer OTHER ==
[~2017-06-28] VITALS: Ht 160 cm; Wt 96.6 kg
[~2017-06-28 18:23] MED LIST changes: -BACTRIM DS TAB1 EACH PO; -COREG6.25 MG PO; -DIPHENHYDRAMINE25 M3 PO; -FEMARA2.5 MG PO; -HUMALOG100 UNIT/1 SUBQ; -HUMALOG100 UNIT/2 SUBQ; -HYDRALAZINE 2525 MG PO; -LEVALBUTER1.25 MG/0. INH; -TOUJEO MAX300 UNIT/1 SUBQ
[2017-06-28 18:46] VITALS: BP 229/106
[2017-07-12] MEDS ORDERED: LEVALBUTER1.25 MG/0. INH (15:47)
[2017-07-12] MEDS ORDERED: HYDRALAZINE 2525 MG PO (15:48)
[2017-07-12] MEDS ORDERED: COREG6.25 MG PO (15:48)
[2017-07-12] MEDS ORDERED: HUMALOG100 UNIT/1 SUBQ (15:49)
[2017-07-12] MEDS ORDERED: HUMALOG100 UNIT/2 SUBQ (15:51)
[2017-07-12] MEDS ORDERED: TOUJEO MAX300 UNIT/1 SUBQ (15:51)
[2017-07-28] MEDS ORDERED: TRAMADOL 50 MG50 MG PO (15:51)
== END 2017-06-28 18:47 | disposition home or self-care (01) ==
LOC: M.ERS 18:23
DX: H43.392 Other vitreous opacities, left eye (principal); E11.9 Type 2 diabetes mellitus without complications; E78.5 Hyperlipidemia, unspecified; I10 Essential (primary) hypertension; Z88.8 Allergy status to other drugs, medicaments and biological substances; Z79.4 Long term (current) use of insulin; Z90.710 Acquired absence of both cervix and uterus; Z90.49 Acquired absence of other specified parts of digestive tract

== ENCOUNTER → 2017-07-04 | Outpatient (CLI) | payer OTHER ==
[~2017-07-04] MED LIST changes: +BACTRIM DS TAB1 EACH PO; +COREG6.25 MG PO; +DIPHENHYDRAMINE25 M3 PO; +FEMARA2.5 MG PO; +HUMALOG100 UNIT/1 SUBQ; +HUMALOG100 UNIT/2 SUBQ; +HYDRALAZINE 2525 MG PO; +LEVALBUTER1.25 MG/0. INH; +TOUJEO MAX300 UNIT/1 SUBQ
== END ==
LOC: M.ULTRA 08:38
DX: C50.912 Malignant neoplasm of unspecified site of left female breast (principal); C77.3 Secondary and unspecified malignant neoplasm of axilla and upper limb lymph nodes; E11.9 Type 2 diabetes mellitus without complications; K80.10 Calculus of gallbladder with chronic cholecystitis without obstruction; E66.01 Morbid (severe) obesity due to excess calories; Z90.13 Acquired absence of bilateral breasts and nipples

== ENCOUNTER → 2017-07-28 | Outpatient (CLI) | payer OTHER | END | disposition home or self-care (01) | LOC: M.RAD 08:00 | DX: Z48.817 Encounter for surgical aftercare following surgery on the skin and subcutaneous tissue (principal); D64.9 Anemia, unspecified; R92.1 Mammographic calcification found on diagnostic imaging of breast; Z87.440 Personal history of urinary (tract) infections; Z79.899 Other long term (current) drug therapy; Z88.8 Allergy status to other drugs, medicaments and biological substances ==

== ENCOUNTER → 2017-07-28 | Day surgery (SDC) | payer OTHER ==
[2017-07-28 11:53] LABS: HEMATOCRIT 33.5 % (37.0-47.0); HEMOGLOBIN 11.4 gm/dL (12.0-15.0); MCH 32.1 pg (26.0-34.0); MCV 94.3 fL (80.0-100.0); MPV 6.7 fl. (7.2-11.1); RBC 3.56 mil/uL (4.20-5.00); RDW-CV 13.2 % (10.5-14.5); WBC 6.2 thou/uL (4.0-11.0)
[2017-07-28 11:57] LABS: CREATININE 0.8 mg/dL (0.6-1.3); POTASSIUM 4.2 mmol/L (3.5-5.1)
[2017-07-28 12:03] LABS: ALBUMIN 3.4 g/dL (3.4-5.0); TOTAL BILIRUBIN 0.4 mg/dL (<0.1-1.0)
--- NOTE | 2017-08-08 14:40 | OP ---
[address] [address] OPERATIVE REPORT Name: MICHELLE ARANGO Room: [facility]#: [id number] Admission: 07/28/17 Attend Phys: Sugar Reich DO Discharge: Date of : 53 Report #: [id number] THIS REPORT FOR: //name// CC: Lias Delgadillo Primary Care Doctor DICTATED BY: Son Tenorio DO DATE OF SERVICE: 07/28/2017 PREOPERATIVE DIAGNOSIS: Left axillary mass. POSTOPERATIVE DIAGNOSIS: Left axillary mass. SURGEON: Sugar Reich DO CO-SURGEONS: Lex Tenorio, PGY-3 and Luis Gatica, PGY-1. OPERATION PERFORMED: Excision of left axillary mass with prior wire localization. ANESTHESIA TYPE: General and local. ESTIMATED BLOOD LOSS: 10 mL. SPECIMENS REMOVED: Left axillary mass wire and clip. COMPLICATIONS: None. COMMENTS: The axillary mass along with the wire that was previously placed prior to surgery as well as the biopsy clip were removed during today's procedure. This was sent to Radiology for confirmation. INDICATIONS OF PROCEDURE: The patient is a very pleasant 61-year-old female who presented to our office after recommendation from her oncologist. The patient had a left axillary mass that was noted prior to her chemotherapy for her metastatic breast cancer. These left axillary masses had actually shrunken prior to today's surgery; however, it was still recommended the patient had them removed. These areas were biopsied and did appear to be metastatic lesions. There were clips placed during her biopsy at that time. A description of the procedure was reviewed with the patient in detail during her office visit. All benefits, risks and complications were also discussed at the time of her visit. We elected to do a local excision of the left axillary mass with prior wire localization to be placed by radiologist. [place] [address] OPERATIVE REPORT Name: MICHELLE ARANGO Room: [facility]#: [id number] Admission: 07/28/17 Attend Phys: Sugar Reich DO Discharge: Date of : 53 Report #: [id number] mass as well as the clip and placed the wire in the area, both under ultrasound guidance. The patient voiced complete understanding what the procedure was to be and she voiced clear understanding and wished to proceed. DESCRIPTION OF PROCEDURE: After the appropriate consents were obtained, the patient was taken to the operating room, laid in supine position. She had SCDs placed on bilateral lower extremities and safety strap placed across the lap. Both of her arms were placed out, specifically the left, so that we could adequately visualize the left axilla. The patient had all lines placed by Anesthesia. LMA was then placed by Anesthesia without difficulty. The patient's left axilla was then prepped and draped in a standard sterile fashion. A timeout was performed to correctly identify the patient and procedure. We started with some left axillary local anesthetic consisting of 0.5% Marcaine. Then, using a 15-blade scalpel, we made our transverse incision. The incision was then taken down through the subcutaneous tissue in a circumferential pattern. We ensured to encompass tip of our wire as well as go a little bit more medial to include the mass that was seen on ultrasound as well as more lateral to the wire to include our previously placed clip by Radiology. We were able to see the tip of our wire during our dissection. We also were able to visualize the axillary artery and vein, which was coursing well below this. The specimen was removed using electrocautery as well as some blunt dissection. Once the specimen was completely transected, we sent it to Radiology for confirmation of the clip placement to ensure that we had an adequate specimen. The wire that was previously placed under ultrasound guidance was intact and there was a clip within the specimen confirming that we had adequately excised the area. We thoroughly irrigated this area in the left axilla with normal saline and we suctioned it dry. Any bleeding that was occurring was adequately controlled using electrocautery. We did inject some FloSeal into the patient's left axillary incision to aid with any further needed hemostasis. The deep subcutaneous tissue was closed using inverted interrupted 3-0 Vicryl sutures. The more superficial subcutaneous tissue was also closed in the same fashion. This was done in a layered manner. The skin was closed using a running 4-0 subcuticular Monocryl suture. We cleaned the axilla very thoroughly and then dried it adequately and placed some Mastisol, Steri-Strips and a sterile Tegaderm and OpSite as well as some gauze. The incision site was then further localized with some local anesthetic to ensure pain relief after the procedure. The patient tolerated the procedure well. Counts were correct x 2 at the end of the procedure. Dr. Reich was present and scrubbed for the entirety of this procedure. <ELECTRONICALLY SIGNED> By: Sugar Reich DO 08/08/17 1440 1544 1807Sugar Reich DO /chioma
--- NOTE | 2017-10-18 16:08 | PATH ---
[address] [address] PATHOLOGY RPT PROCEDURE Name: SINAI ARANGO Room: [facility].#: [id number] Admission: 07/28/17 Date of : 53 Discharge: Report #: [id number] Path Case #: [id number] [facility] Accession Number: [id number] . 01 Material submitted: . LEFT AXILLARY MASS . 01 Clinical history: . History of lymph node cancer, metastatic breast cancer. . . 02 Diagnosis: Left axillary mass, wire localization-guided excision: - HIGH-GRADE DUCTAL ADENOCARCINOMA TYPICAL OF BREAST PRIMARY, INVOLVING FIBROFATTY TISSUE, SPANNING 17 MM, IN ASSOCIATION WITH DENSE FIBROSIS, LYMPHOVASCULAR INVASION, AND FOREIGN BODY TYPE GRANULOMATOUS RESPONSE, FOCALLY INVOLVING INKED/CAUTERIZED SURFACE. (SEE COMMENT) QT08/01/2017 . 02 Comment: The tumor is histologically identical to that seen in prior left axillary node biopsies ([id number]). The tumor is seen in minute foci within fatty tissues in addition to the dominant tumor mass and it focally involves inked cauterized surface in A1. . Preliminary findings discussed with Dr. Reich on afternoon of 07/31/2017. (POLI:pit; 07/31/2017) . 02 Addendum: . Special studies report received from [facility], [address] [place] [address], [address], [place], [address], on case [id number], labeled with their number [id number], dated 08/19/2017. . Predictive/Prognostic Marker Analysis . Specimen 1: Lt Axillary Specimen ID#: [id number] ER (Estrogen Receptor): Present/Positive Percent: 97.1% Intensity: Strong Analysis Type: Computer Assisted . MA (Progesterone Receptor): Present/Positive Percent: 43.3% Intensity: Moderate Analysis Type: [place] [address] PATHOLOGY RPT PROCEDURE Name: SINAI ARANGO Room: [facility]#: [id number] Admission: 07/28/17 Date of : 53 Discharge: Report #: [id number] Path Case #: [id number] HER2: Not Over-Expressed Score: 1+ Analysis Type: Computer Assisted . Fixation Information Type of Fixative: 10% Neutral Buffered Formalin Time to Fixation: Not Provided Duration of Fixation: Not Provided . Codes: Reported CPT Code(s): 05038-14 X 3 . at [facility], DON Tricia Hernandez MD . Methodology The HER2 Receptor protein expression is analyzed using the [employer]ers HER2 rabbit monoclonal antibody (clone 4B5). This assay is used for diagnostic determination of the HER2 protein over-expression in paraffin embedded, formalin fixed breast cancer tissue on the Graingers Benchmark. The specimen is processed using a polymer detection system. The membrane staining of the tumor is determined either by manual score or image analysis. This antibody is intended for in vitro diagnostic use. The score is reported as per package insert; 0, 1+, 2+, and 3+. This test is used for clinical purposes. . A rabbit monoclonal antibody (clone SP1) that recognized the Estrogen Receptor is used to perform immunohistochemistry on routinely fixed (formalin) paraffin embedded tissue on the Graingers Benchmark. The specimen is processed using a polymer detection system. The percentage of stained tumor nuclei is determined either manually or by image analysis. This test is intended for in vitro diagnostic use. This test is used for clinical purposes. . A rabbit monoclonal antibody (clone 1E2) that recognized the Progesterone Receptor is used to perform immunohistochemistry on routinely fixed (formalin) paraffin embedded tissue on the Graingers Benchmark. The specimen is processed using a polymer detection system. The percentage of stained tumor nuclei is determined either manually or by image analysis. This test is intended for in vitro diagnostic use. This test is used for clinical purposes. . Intended Use (when used as Prognostic/Predictive Markers): This antibody is intended for in vitro diagnostic (IVD) use. Estrogen Receptor (ER) (SP1) is a rabbit monoclonal antibody (IgG) that is intended for the qualitative detection of estrogen receptor ([place] [address] PATHOLOGY RPT PROCEDURE Name: SINAI ARANGO Room: [facility]#: [id number] Admission: 07/28/17 Date of : 53 Discharge: Report #: [id number] Path Case #: [id number] sections of formalin-fixed, paraffin-embedded tissue. ER is a rabbit monoclonal antibody that recognizes human estrogen receptor alpha. . This antibody is intended for in vitro diagnostic (IVD) use. Progesterone Receptor (MA) (1E2) is a rabbit monoclonal antibody (IgG) that is intended for the qualitative detection of progesterone receptor (MA) antigen in sections of formalin fixed, paraffin embedded tissue. MA is a rabbit monoclonal antibody that recognizes the A and B forms of the human progesterone receptor. . This antibody is intended for in vitro diagnostic (IVD) use. HER2 (4B5) is a rabbit monoclonal antibody intended for the semi-quantitative detection of HER2 antigen in sections of formalin-fixed, paraffin embedded normal and neoplastic tissue. The HER2 protein is expressed as a level detectable by immunohistochemistry in up to 20 percent of adenocarcinomas from various sites. . Disclaimer [facility] [employer] is a business unit of [employer] a wholly-owned subsidiary of [employer]. . Technical component performed by [employer] at [address] [place] [address] Nghia Rodriguez MD . Professional component performed by [facility] at [address] [place] [address] [address], [place] [address] . Any image(s) that accompany this report is/are a national sales representative image(s) only and should not be used to render a diagnosis. . HER2 testing at [facility] [employer] is performed in compliance with the 2013 updated ASCO/CAP Clinical Practice Guidelines and Recommendations for HER2 testing in Breast Cancer. If the result is EQUIVOCAL (2+), it must be confirmed by an alternative assay such as FISH or Dual MARKELL. REF: Altaf STOLL, et al. Recommendations for human epidermal growth factor receptor 2 testing in breast cancer: [place] Society of Clinical Oncology/College of [place] pathologists Clinical Practice Guideline Update. J Clin Oncol. 2013 Dec 21;31(31):4805-1656. . HER2 and ER/MA ASCO/CAP guidelines require fixation in neutral buffered formalin for a minimum of 6 and a maximum of 72 hours. Fixation times less than 6 hours may not adequately preserve cell proteins. Fixation times longer than 72 hours may cause excess cross-linking of proteins reducing the antigen available for staining. Either scenario can cause reduced staining; hence false negative results are possible and should be considered for these situations if the HER2 IHC score is less than 3+ or ER or MA is negative (no staining or <1% positive). [place] [address] PATHOLOGY RPT PROCEDURE Name: SINAI ARANGO Room: [facility]#: [id number] Admission: 07/28/17 Date of : 53 Discharge: Report #: [id number] Path Case #: [id number] specimens fixed longer than 72 hours with HER2 IHC scores less than 3+ be confirmed by HER2 FISH or Dual MARKELL. The time from biopsy/excision to fixation in formalin (cold ischemic time) must be less than 1 hour. Time to fixation (cold ischemic time) greater than 1 hour should be interpreted with caution. HER2 testing, mainly HER2 by FISH, is particularly vulnerable since excessive cold ischemic time results in preferential loss of HER2 probe signals that may lead to false negative results. . The immunohistochemistry tests performed at [employer] were validated on tissue fixed in 10% neutral buffered formalin. The performance characteristics of the tests performed on tissue processed in other fixatives is not known. . SCORE STAINING PATTERN IN TUMOR CELLS INTERPRETATION RESULTS 0 No staining observed or incomplete, faint membrane staining in less than or equal to 10% of tumor cells. Negative 1+ Incomplete, faint membrane staining in greater than 10% of tumor cells. Negative 2+ Incomplete and/or weak/moderate circumferential membrane staining . in greater than 10% of the invasive tumor cells or complete, . circumferential, intense alternative assay staining in less than or equal to 10% of invasive tumor cells. Equivocal* *Must be confirmed by alternative assay (IHC/FISH/Dual MARKELL) 3+ Intense, complete membrane staining in greater than 10% of tumor cells. Positive . A complete copy of the report is on file. . Professional services performed by [employer] at [address] [facility] [address], [place] [address]. Technical services performed by [employer] at [address], [place] [address]. . (AMJ 08/21/2017) . AZJ/08/21/2017 Addendum Electronically Signed by Chapito Bruner MD. Pathologist . 02 Electronically signed: . Winston Mills MD, [place] [address] PATHOLOGY RPT PROCEDURE Name: SINAI ARANGO [facility] [id number] Admission: 07/28/17 Date of : 53 Discharge: Report #: [id number] Path Case #: [id number] NPI- [id number] . 01 Gross description: . Received in formalin labeled "Sinai Arango, left axillary mass" is a 3.8 x 3.5 x 1.8 cm portion of mattson-yellow lobulated fibroadipose tissue. A localization wire is present within the specimen. The external surface is inked entirely black. The specimen is sectioned to reveal a mattson-white fibrotic possible lymph node which measures 1.7 x 1.5 x 0.8 cm. The remainder of the cut surface is mattson-yellow and homogeneous. The possible lymph node is submitted entirely in cassettes A1-A4. The specimen is removed from the patient at 1452 and placed in formalin at 1506 on July 28, 2017. The specimen is removed from formalin at 1850 on July 30, 2017. ([facility]; 07/29/2017) . After initial microscopic review, the remainder of the specimen is entirely submitted in A5-A9 (A8-A9 = single slice, bisected) . ([facility]; 07/31/2017) SYC/SYC . 02 Pathologist provided ICD-10: C77.3 . 02 CPT . 057882 Performed at: 01 [facility] [address] [facility] [address], [place], [place] [address] MD Kenny Alaniz MD Phone: [phone] Performed at: 02 [facility] [address], [place] [address] MD Winston Mills MD Phone: [phone]
== END | disposition home or self-care (01) ==
LOC: M.SUR 07:33
PROVIDERS: Surgery
DX: C77.3 Secondary and unspecified malignant neoplasm of axilla and upper limb lymph nodes (principal); Z85.3 Personal history of malignant neoplasm of breast; Z87.440 Personal history of urinary (tract) infections; Z79.899 Other long term (current) drug therapy; Z88.8 Allergy status to other drugs, medicaments and biological substances; Z98.890 Other specified postprocedural states

== ENCOUNTER 2017-08-21 11:26 | Emergency (ER) | payer OTHER ==
[~2017-08-21] VITALS: Ht 160 cm; Wt 96.6 kg
[~2017-08-21 11:26] MED LIST changes: -BACTRIM DS TAB1 EACH PO; -DIPHENHYDRAMINE25 M3 PO; -FEMARA2.5 MG PO
[2017-08-21] MEDS ORDERED: DIPHENHYDRAMINE25 M3 PO (11:50)
[2017-08-21 12:50] VITALS: BP 170/76
== END 2017-08-21 12:51 | disposition home or self-care (01) ==
LOC: M.ERS 11:26
DX: S00.81XA Abrasion of other part of head, initial encounter (principal); S80.212A Abrasion, left knee, initial encounter; S90.412A Abrasion, left great toe, initial encounter; I10 Essential (primary) hypertension; E78.5 Hyperlipidemia, unspecified; E11.9 Type 2 diabetes mellitus without complications; Z79.4 Long term (current) use of insulin; Z90.710 Acquired absence of both cervix and uterus; Z90.49 Acquired absence of other specified parts of digestive tract; Z88.8 Allergy status to other drugs, medicaments and biological substances; W18.39XA Other fall on same level, initial encounter; Y93.89 Activity, other specified; Y92.89 Other specified places as the place of occurrence of the external cause; Y99.8 Other external cause status

== ENCOUNTER → 2017-08-30 | Outpatient (CLI) | payer OTHER ==
[~2017-08-30] MED LIST changes: +BACTRIM DS TAB1 EACH PO; +DIPHENHYDRAMINE25 M3 PO; +FEMARA2.5 MG PO
[2017-08-30 12:02] LABS: URINE BILIRUBIN NEGATIVE (Negative); URINE BLOOD TRACE (Negative); URINE CLARITY CLEAR; URINE COLOR YELLOW; URINE GLUCOSE-RANDOM NEGATIVE (Negative); URINE KETONES NEGATIVE (Negative); URINE PROTEIN TRACE (Negative); URINE UROBILINOGEN 0.2 E.U./dl (0.2-1.0)
[2017-08-30 12:06] LABS: URINE LEUKOCYTES-REFLEX 2+ (Negative); URINE NITRITE-REFLEX POSITIVE (Negative)
[2017-08-30 12:16] LABS: BACTERIA-REFLEX >30 Many /HPF (None Seen); CASTS None Seen /LPF (None Seen); CRYSTALS None Seen /LPF (None Seen); SQUAMOUS 0-3 Few /LPF (0-3); URINE RBC 0-2 Rare /HPF (0-2); URINE WBC-REFLEX >25 Many /HPF (0-5)
== END ==
LOC: M.LAB 11:42
DX: Z51.11 Encounter for antineoplastic chemotherapy (principal); C50.912 Malignant neoplasm of unspecified site of left female breast; D64.9 Anemia, unspecified

== ENCOUNTER → 2017-10-30 | Outpatient (CLI) | payer OTHER ==
[2017-10-30 11:46] LABS: URINE BILIRUBIN NEGATIVE (Negative); URINE BLOOD 2+ (Negative); URINE CLARITY CLEAR; URINE COLOR YELLOW; URINE GLUCOSE-RANDOM NEGATIVE (Negative); URINE KETONES NEGATIVE (Negative); URINE LEUKOCYTES 2+ (Negative); URINE NITRITE POSITIVE (Negative); URINE PROTEIN 1+ (Negative); URINE UROBILINOGEN 0.2 E.U./dl (0.2-1.0)
[2017-10-30 11:53] LABS: BACTERIA >30 Many /HPF (None Seen); CASTS None Seen /LPF (None Seen); CRYSTALS None Seen /LPF (None Seen); MUCUS None Seen strn/LPF (None Seen); SQUAMOUS 0-3 Few /LPF (0-3); URINE RBC 3-10 Few /HPF (0-2); URINE WBC >25 Many /HPF (0-5)
== END ==
LOC: M.LAB 11:28
PROVIDERS: Internal Medicine
DX: Z51.11 Encounter for antineoplastic chemotherapy (principal); C50.912 Malignant neoplasm of unspecified site of left female breast; D64.9 Anemia, unspecified; I10 Essential (primary) hypertension; E11.9 Type 2 diabetes mellitus without complications; E78.5 Hyperlipidemia, unspecified; Z79.4 Long term (current) use of insulin; Z79.899 Other long term (current) drug therapy

== ENCOUNTER 2017-11-01 10:34 | Emergency (ER) | payer OTHER ==
[~2017-11-01] VITALS: Ht 160 cm; Wt 95.7 kg
[~2017-11-01 10:34] MED LIST changes: -BACTRIM DS TAB1 EACH PO; -FEMARA2.5 MG PO
[2017-11-01 11:02] LABS: URINE BILIRUBIN NEGATIVE (Negative); URINE BLOOD 1+ (Negative); URINE CLARITY SL CLOUDY; URINE COLOR YELLOW; URINE GLUCOSE-RANDOM NEGATIVE (Negative); URINE KETONES NEGATIVE (Negative); URINE PROTEIN 1+ (Negative); URINE UROBILINOGEN 0.2 E.U./dl (0.2-1.0)
[2017-11-01 11:04] LABS: URINE LEUKOCYTES-REFLEX 3+ (Negative); URINE NITRITE-REFLEX POSITIVE (Negative)
[2017-11-01] MEDS ORDERED: FEMARA2.5 MG PO (11:07)
[2017-11-01 11:28] LABS: SQUAMOUS 4-10 Moderate /LPF (0-3); TRANSITIONAL EPITHEL CELL 0-3 Few /LPF (None Seen); URINE WBC-REFLEX >25 Many /HPF (0-5)
[2017-11-01 11:29] LABS: BACTERIA-REFLEX >30 Many /HPF (None Seen); URINE RBC 3-10 Few /HPF (0-2)
[2017-11-01 11:30] LABS: CASTS None Seen /LPF (None Seen); CRYSTALS None Seen /LPF (None Seen); MUCUS None Seen strn/LPF (None Seen)
[2017-11-01] MEDS ORDERED: BACTRIM DS TAB1 EACH PO (11:58)
[2017-11-01 12:14] VITALS: BP 108/47
== END 2017-11-01 12:10 | disposition home or self-care (01) ==
LOC: M.ERS 10:34
PROVIDERS: Nurse Practitioner Family
DX: N39.0 Urinary tract infection, site not specified (principal); E11.9 Type 2 diabetes mellitus without complications; I10 Essential (primary) hypertension; E78.5 Hyperlipidemia, unspecified; Z79.4 Long term (current) use of insulin; Z85.3 Personal history of malignant neoplasm of breast; Z90.710 Acquired absence of both cervix and uterus; Z88.8 Allergy status to other drugs, medicaments and biological substances

== ENCOUNTER 2017-11-01 17:55 | Inpatient (IN) | payer OTHER ==
[~2017-11-01] VITALS: Ht 160 cm; Wt 95.7 kg
[~2017-11-01 17:55] MED LIST changes: +BACTRIM DS TAB1 EACH PO; +FEMARA2.5 MG PO
[2017-11-01 18:05] VITALS: BP 195/81
[2017-11-01 18:34] LABS: HEMATOCRIT 35.3 % (37.0-47.0); MCH 32.4 pg (26.0-34.0); MCV 95.2 fL (80.0-100.0); MPV 6.9 fl. (7.2-11.1); NUCLEATED RBCS 0 /100WBC; PLATELET COUNT* 281 thou/uL (150-400); RBC 3.71 mil/uL (4.20-5.00); RDW-CV 12.8 % (10.5-14.5); WBC 10.3 thou/uL (4.0-11.0)
[2017-11-01 18:42] LABS: INR 0.9; PROTIME 9.4 Seconds (9.20-11.50)
[2017-11-01 18:43] LABS: ANION GAP 8 mmol/L (7-16); BUN 19 mg/dL (7-18); CALCIUM 8.5 mg/dL (8.5-10.1); CHLORIDE 103 mmol/L (98-107); CO2 27 mmol/L (21-32); GLUCOSE 206 mg/dL (70-99); POTASSIUM 4.5 mmol/L (3.5-5.1); SODIUM 138 mmol/L (136-145)
[2017-11-01 18:54] LABS: ALBUMIN 3.1 g/dL (3.4-5.0); ALKALINE PHOSPHATASE 97 U/L (46-116); LIPASE 100 U/L (73-393); NT-PRO BRAIN NAT PEPTIDE 377 pg/mL (<300); SGOT 19 U/L (15-37); SGPT 21 U/L (30-65); TOTAL BILIRUBIN 0.3 mg/dL (<0.1-1.0); TOTAL PROTEIN 7.5 g/dL (6.4-8.2); TROPONIN-I LEVEL <0.06 ng/mL (<0.06)
[2017-11-01 19:00] LABS: ABSOLUTE BASOPHILS 0.1 thou/uL (0.0-0.2); ABSOLUTE LYMPHOCYTES 0.4 thou/uL (0.8-5.3); ABSOLUTE MONOCYTES 0.4 thou/uL (0.0-1.2); ABSOLUTE NEUTROPHILS 9.4 thou/uL (1.6-8.1)
[2017-11-01 19:01] LABS: PLATELET ESTIMATE ADEQUATE
[2017-11-01 20:30] VITALS: BP 182/86
[2017-11-01 20:42] LABS: URINE BILIRUBIN NEGATIVE (Negative); URINE BLOOD TRACE (Negative); URINE CLARITY SL CLOUDY; URINE COLOR YELLOW; URINE GLUCOSE-RANDOM NEGATIVE (Negative); URINE KETONES NEGATIVE (Negative); URINE NITRITE-REFLEX NEGATIVE (Negative); URINE PROTEIN TRACE (Negative); URINE UROBILINOGEN 0.2 E.U./dl (0.2-1.0)
[2017-11-01 20:43] LABS: URINE LEUKOCYTES-REFLEX 2+ (Negative)
[2017-11-01 20:51] LABS: BACTERIA-REFLEX 1-9 Few /HPF (None Seen); CASTS None Seen /LPF (None Seen); CRYSTALS None Seen /LPF (None Seen); SQUAMOUS 0-3 Few /LPF (0-3); URINE RBC 0-2 Rare /HPF (0-2); URINE WBC-REFLEX >25 Many /HPF (0-5); WBC CLUMPS Few (None Seen)
[2017-11-01 21:00] VITALS: BP 139/60
[2017-11-02] VITALS: BP 126/57; BP 129/57; BP 133/78
[2017-11-02 04:10] VITALS: BP 178/79
[2017-11-02 06:40] LABS: ABSOLUTE EOSINOPHILS 0.1 thou/uL (0.0-0.7); ABSOLUTE LYMPHOCYTES 0.3 thou/uL (0.8-5.3); ABSOLUTE MONOCYTES 0.9 thou/uL (0.0-1.2); ABSOLUTE NEUTROPHILS 5.8 thou/uL (1.6-8.1); BASOPHILS 0.3 %; HEMATOCRIT 28.7 % (37.0-47.0); LYMPHOCYTES 4.1 %; MCH 32.7 pg (26.0-34.0); MCHC 34.1 g/dL (28.0-37.0); MONOCYTES 13.2 %; MPV 6.9 fl. (7.2-11.1); NUCLEATED RBCS 0 /100WBC; PLATELET COUNT* 236 thou/uL (150-400); POLYS 81.4 %; RBC 2.99 mil/uL (4.20-5.00); WBC 7.1 thou/uL (4.0-11.0)
[2017-11-02 06:54] LABS: HEMOGLOBIN 9.8 gm/dL (12.0-15.0)
[2017-11-02 07:23] LABS: CALCIUM 7.7 mg/dL (8.5-10.1); POTASSIUM 4.1 mmol/L (3.5-5.1)
[2017-11-02 09:00] VITALS: BP 135/60
[2017-11-02 11:51] VITALS: BP 165/74
--- NOTE | 2017-11-02 14:54 | EKG ---
[place] [address] ELECTROCARDIOGRAM REPORT Name: MICHELLE ARANGO Room: [address] IN [facility].#: [id number] Admission: 11/01/17 Attend Phys: Sarmad Britt MD Discharge: Date of : 53 Report #: [id number] THIS REPORT FOR: //name// [facility] ED Test Date: 2017-11-01 Test Time: 18:35:49 Pat Name: MICHELLE ARANGO Department: Room: [facility] Gender: F Medical Office Manager: Cassidy LOCK : 1955 Requested By: Fidel Murrieta Order Number: [id number] MD: Phi Jaimes Measurements Intervals Wilson Rate: 102 P: 14 KS: 149 QRS: 12 QRSD: 87 T: 17 QT: 342 QTc: 446 Interpretive Statements Sinus tachycardia Borderline T abnormalities, anterior leads Compared to ECG 02/10/2017 04:59:00 T-wave abnormality now present Sinus rhythm no longer present Electronically Signed On 11-02-2017 14:54:31 CDT by Phi Jaimes [email or web address] <ELECTRONICALLY SIGNED> By: Phi Jaimes MD, [facility] 11/02/17 1454 1835 1835 Phi Jaimes MD, [facility] /EPI
[2017-11-02 16:00] VITALS: BP 146/63
[2017-11-02 20:45] VITALS: BP 151/60
[2017-11-03] VITALS: BP 113/53
[2017-11-03 04:00] VITALS: BP 170/83
[2017-11-03 04:31] LABS: ABSOLUTE EOSINOPHILS 0.1 thou/uL (0.0-0.7); ABSOLUTE LYMPHOCYTES 0.6 thou/uL (0.8-5.3); ABSOLUTE MONOCYTES 0.8 thou/uL (0.0-1.2); ABSOLUTE NEUTROPHILS 4.5 thou/uL (1.6-8.1); BASOPHILS 0.3 %; EOSINOPHILS 1.3 %; HEMATOCRIT 27.7 % (37.0-47.0); HEMOGLOBIN 9.5 gm/dL (12.0-15.0); LYMPHOCYTES 9.4 %; MCH 32.7 pg (26.0-34.0); MCHC 34.1 g/dL (28.0-37.0); MCV 95.7 fL (80.0-100.0); MONOCYTES 13.5 %; MPV 7.2 fl. (7.2-11.1); NUCLEATED RBCS 0 /100WBC; PLATELET COUNT* 221 thou/uL (150-400); POLYS 75.5 %; RDW-CV 12.8 % (10.5-14.5); WBC 5.9 thou/uL (4.0-11.0)
[2017-11-03 04:45] LABS: ALBUMIN 2.5 g/dL (3.4-5.0); CALCIUM 8.3 mg/dL (8.5-10.1); CREATININE 0.9 mg/dL (0.6-1.3); POTASSIUM 3.7 mmol/L (3.5-5.1); TOTAL BILIRUBIN 0.2 mg/dL (<0.1-1.0); TOTAL PROTEIN 6.3 g/dL (6.4-8.2)
[2017-11-03 06:50] VITALS: BP 147/72
[2017-11-03 12:10] VITALS: BP 148/70
[2017-11-03 16:00] VITALS: BP 186/76
[2017-11-03 19:31] VITALS: BP 148/62
[2017-11-04 01:27] VITALS: BP 141/45
[2017-11-04 04:00] VITALS: BP 129/91
[2017-11-04 05:14] LABS: ABSOLUTE EOSINOPHILS 0.1 thou/uL (0.0-0.7); ABSOLUTE LYMPHOCYTES 0.7 thou/uL (0.8-5.3); ABSOLUTE MONOCYTES 0.8 thou/uL (0.0-1.2); ABSOLUTE NEUTROPHILS 3.6 thou/uL (1.6-8.1); BASOPHILS 0.3 %; EOSINOPHILS 1.7 %; HEMATOCRIT 28.4 % (37.0-47.0); HEMOGLOBIN 9.8 gm/dL (12.0-15.0); LYMPHOCYTES 13.7 %; MCH 32.8 pg (26.0-34.0); MCHC 34.5 g/dL (28.0-37.0); MCV 95.1 fL (80.0-100.0); MONOCYTES 15.4 %; MPV 7.2 fl. (7.2-11.1); NUCLEATED RBCS 0 /100WBC; PLATELET COUNT* 238 thou/uL (150-400); POLYS 68.9 %; RBC 2.99 mil/uL (4.20-5.00); RDW-CV 12.6 % (10.5-14.5); WBC 5.2 thou/uL (4.0-11.0)
[2017-11-04 06:19] LABS: ALBUMIN 2.4 g/dL (3.4-5.0); CALCIUM 8.1 mg/dL (8.5-10.1); CREATININE 0.8 mg/dL (0.6-1.3); POTASSIUM 3.5 mmol/L (3.5-5.1); TOTAL BILIRUBIN 0.2 mg/dL (<0.1-1.0); TOTAL PROTEIN 6.1 g/dL (6.4-8.2)
[2017-11-04 08:00] VITALS: BP 154/83
[2017-11-04 16:00] VITALS: BP 167/81
[2017-11-04 19:36] VITALS: BP 162/57
[2017-11-05] VITALS: BP 176/78
[2017-11-05 04:00] VITALS: BP 167/82
[2017-11-05 08:42] VITALS: BP 162/78
[2017-11-05 09:19] LABS: ABSOLUTE EOSINOPHILS 0.1 thou/uL (0.0-0.7); ABSOLUTE LYMPHOCYTES 0.7 thou/uL (0.8-5.3); ABSOLUTE MONOCYTES 0.6 thou/uL (0.0-1.2); ABSOLUTE NEUTROPHILS 3.5 thou/uL (1.6-8.1); BASOPHILS 0.5 %; EOSINOPHILS 2.2 %; HEMATOCRIT 26.8 % (37.0-47.0); HEMOGLOBIN 9.2 gm/dL (12.0-15.0); LYMPHOCYTES 14.1 %; MCH 32.7 pg (26.0-34.0); MCHC 34.2 g/dL (28.0-37.0); MCV 95.5 fL (80.0-100.0); MONOCYTES 11.4 %; MPV 7.3 fl. (7.2-11.1); NUCLEATED RBCS 0 /100WBC; PLATELET COUNT* 248 thou/uL (150-400); POLYS 71.8 %; RDW-CV 12.8 % (10.5-14.5); WBC 4.8 thou/uL (4.0-11.0)
[2017-11-05 09:28] LABS: ALBUMIN 2.5 g/dL (3.4-5.0); CALCIUM 8.1 mg/dL (8.5-10.1); CREATININE 0.8 mg/dL (0.6-1.3); POTASSIUM 3.5 mmol/L (3.5-5.1); TOTAL BILIRUBIN 0.2 mg/dL (<0.1-1.0); TOTAL PROTEIN 6.2 g/dL (6.4-8.2)
[2017-11-05 09:35] LABS: PREALBUMIN 15.3 mg/dL (18.0-35.7)
[2017-11-05 10:58] VITALS: BP 162/78
== END 2017-11-05 13:22 | disposition home or self-care (01) | DRG 872 ==
LOC: M.ERS 17:55 → M.TBA-ER 18:39 → M.3W 18:53 → M.TBA-ER 18:53 → M.3W 21:00
PROVIDERS: Family Medicine; ADMIT Internal Medicine
DX: A41.9 Sepsis, unspecified organism (principal); N39.0 Urinary tract infection, site not specified; I10 Essential (primary) hypertension; E78.5 Hyperlipidemia, unspecified; E86.0 Dehydration; E11.65 Type 2 diabetes mellitus with hyperglycemia; B96.20 Unspecified Escherichia coli [E. coli] as the cause of diseases classified elsewhere; R00.0 Tachycardia, unspecified; Z88.8 Allergy status to other drugs, medicaments and biological substances; Z90.710 Acquired absence of both cervix and uterus; Z90.49 Acquired absence of other specified parts of digestive tract; Z98.818 Other dental procedure status; Z85.3 Personal history of malignant neoplasm of breast; Z90.13 Acquired absence of bilateral breasts and nipples; Z82.49 Family history of ischemic heart disease and other diseases of the circulatory system; Z79.4 Long term (current) use of insulin; Z79.899 Other long term (current) drug therapy

== ENCOUNTER → 2018-01-30 | Outpatient (CLI) | payer OTHER ==
[2018-01-30 12:00] LABS: ABSOLUTE EOSINOPHILS 0.1 thou/uL (0.0-0.7); ABSOLUTE LYMPHOCYTES 0.8 thou/uL (0.8-5.3); ABSOLUTE MONOCYTES 0.5 thou/uL (0.0-1.2); ABSOLUTE NEUTROPHILS 2.9 thou/uL (1.6-8.1); BASOPHILS 0.6 %; EOSINOPHILS 2.3 %; HEMATOCRIT 35.4 % (37.0-47.0); HEMOGLOBIN 12.1 gm/dL (12.0-15.0); LYMPHOCYTES 19.3 %; MCH 31.5 pg (26.0-34.0); MCV 92.7 fL (80.0-100.0); MONOCYTES 10.8 %; MPV 6.6 fl. (7.2-11.1); NUCLEATED RBCS 0 /100WBC; PLATELET COUNT* 285 thou/uL (150-400); RBC 3.82 mil/uL (4.20-5.00); RDW-CV 13.1 % (10.5-14.5); WBC 4.3 thou/uL (4.0-11.0)
[2018-01-30 12:11] LABS: ALBUMIN 3.2 g/dL (3.4-5.0); CALCIUM 9.3 mg/dL (8.5-10.1); CREATININE 0.9 mg/dL (0.6-1.3); TOTAL BILIRUBIN 0.2 mg/dL (<0.1-1.0); TOTAL PROTEIN 6.9 g/dL (6.4-8.2)
== END ==
LOC: M.LAB 11:28
PROVIDERS: Internal Medicine
DX: Z51.11 Encounter for antineoplastic chemotherapy (principal); C50.912 Malignant neoplasm of unspecified site of left female breast; D64.9 Anemia, unspecified

== ENCOUNTER → 2018-03-12 | Outpatient (CLI) | payer OTHER ==
--- NOTE | 2018-03-12 15:32 | NUR ---
PORT A CATH ACCESED WITH OUT DIFFICULTY. GOOD BRISK BLOOD RETURN NOTED AND FLUSHED WITH EASE. PORT FLUSHED AND DEACCESSED.
== END ==
LOC: M.INFUS 14:31
DX: Z45.2 Encounter for adjustment and management of vascular access device (principal); C50.912 Malignant neoplasm of unspecified site of left female breast; D64.9 Anemia, unspecified

== ENCOUNTER → 2018-04-23 | Outpatient (CLI) | payer OTHER ==
[2018-04-23 10:45] VITALS: BP 122/78
[2018-04-23 11:38] LABS: ABSOLUTE EOSINOPHILS 0.1 thou/uL (0.0-0.7); ABSOLUTE LYMPHOCYTES 0.7 thou/uL (0.8-5.3); ABSOLUTE MONOCYTES 0.4 thou/uL (0.0-1.2); ABSOLUTE NEUTROPHILS 3.3 thou/uL (1.6-8.1); BASOPHILS 0.5 %; EOSINOPHILS 1.9 %; HEMATOCRIT 33.4 % (37.0-47.0); HEMOGLOBIN 11.5 gm/dL (12.0-15.0); LYMPHOCYTES 15.8 %; MCH 32.3 pg (26.0-34.0); MCHC 34.5 g/dL (28.0-37.0); MCV 93.5 fL (80.0-100.0); MONOCYTES 9.6 %; MPV 6.5 fl. (7.2-11.1); NUCLEATED RBCS 0 /100WBC; PLATELET COUNT* 255 thou/uL (150-400); POLYS 72.2 %; RBC 3.57 mil/uL (4.20-5.00); RDW-CV 12.7 % (10.5-14.5); WBC 4.6 thou/uL (4.0-11.0)
[2018-04-23 11:51] LABS: ALBUMIN 3.1 g/dL (3.4-5.0); CALCIUM 8.9 mg/dL (8.5-10.1); CREATININE 0.9 mg/dL (0.6-1.3); POTASSIUM 3.9 mmol/L (3.5-5.1); TOTAL BILIRUBIN 0.2 mg/dL (<0.1-1.0); TOTAL PROTEIN 6.6 g/dL (6.4-8.2)
[2018-04-24 07:36] LABS: CA 27.29-BREAST CARCINOMA AG 26.7 U/mL (0.0-38.6)
== END ==
LOC: M.INFUS 00:57
PROVIDERS: Internal Medicine
DX: Z45.2 Encounter for adjustment and management of vascular access device (principal); C50.912 Malignant neoplasm of unspecified site of left female breast; D64.9 Anemia, unspecified; Z17.0 Estrogen receptor positive status [ER+]

== ENCOUNTER → 2018-06-04 | Outpatient (CLI) | payer OTHER ==
[~2018-06-04] MED LIST changes: +COZAAR 50 MG TA50 M1 PO
[2018-06-04 11:34] LABS: ABSOLUTE EOSINOPHILS 0.1 thou/uL (0.0-0.7); ABSOLUTE LYMPHOCYTES 0.9 thou/uL (0.8-5.3); ABSOLUTE MONOCYTES 0.7 thou/uL (0.0-1.2); ABSOLUTE NEUTROPHILS 3.8 thou/uL (1.6-8.1); BASOPHILS 0.6 %; EOSINOPHILS 1.8 %; HEMATOCRIT 30.6 % (37.0-47.0); HEMOGLOBIN 10.4 gm/dL (12.0-15.0); LYMPHOCYTES 16.5 %; MCV 94.2 fL (80.0-100.0); MONOCYTES 12.2 %; MPV 6.8 fl. (7.2-11.1); NUCLEATED RBCS 0 /100WBC; PLATELET COUNT* 285 thou/uL (150-400); POLYS 68.9 %; RBC 3.24 mil/uL (4.20-5.00); WBC 5.5 thou/uL (4.0-11.0)
[2018-06-04 12:15] LABS: ALBUMIN 3.2 g/dL (3.4-5.0); CALCIUM 8.7 mg/dL (8.5-10.1); CREATININE 1.3 mg/dL (0.6-1.3); POTASSIUM 4.3 mmol/L (3.5-5.1); TOTAL BILIRUBIN 0.2 mg/dL (<0.1-1.0); TOTAL PROTEIN 6.7 g/dL (6.4-8.2)
== END ==
LOC: M.INFUS 02:58 → M.LAB 02:58 → M.INFUS 11:00
PROVIDERS: Internal Medicine
DX: Z45.2 Encounter for adjustment and management of vascular access device (principal); C50.912 Malignant neoplasm of unspecified site of left female breast; D64.9 Anemia, unspecified

== ENCOUNTER → 2018-06-05 | Outpatient (CLI) | payer OTHER | LOC: M.LAB 13:01 | DX: R30.0 Dysuria (principal) ==

== ENCOUNTER → 2018-06-12 | Day surgery (SDC) | payer OTHER ==
[2018-06-12 07:56] LABS: HEMATOCRIT 32.6 % (37.0-47.0); HEMOGLOBIN 11.1 gm/dL (12.0-15.0); MCH 32.7 pg (26.0-34.0); MCHC 34.2 g/dL (28.0-37.0); MCV 95.5 fL (80.0-100.0); MPV 6.7 fl. (7.2-11.1); RBC 3.41 mil/uL (4.20-5.00); WBC 6.9 thou/uL (4.0-11.0)
[2018-06-12 08:06] LABS: CALCIUM 9.4 mg/dL (8.5-10.1); CREATININE 1.1 mg/dL (0.6-1.3); POTASSIUM 4.6 mmol/L (3.5-5.1)
--- NOTE | 2018-06-12 10:25 | OP ---
[address] [address] OPERATIVE REPORT Name: MICHELLE ARANGO Room: [facility].#: [id number] Admission: 06/12/18 Attend Phys: Sugar Reich DO Discharge: Date of : 53 Report #: [id number] THIS REPORT FOR: //name// CC: Sugar Fontana DATE OF SERVICE: 06/12/2018 PREPROCEDURE DIAGNOSIS: Status chemo port. POSTPROCEDURE DIAGNOSIS: Status chemo port. FINDINGS: Right internal jugular chemo port, which was intact. SURGEON: Sugar Reich DO COSURGEON: Desire Delgadillo, PGY-1 PRINTED CIRCUIT BOARD DESIGNER: AN Hardy. PROCEDURE: Removal of chemo port. ANESTHESIA: LMA and local. ESTIMATED BLOOD LOSS: None. DRAINS: None. SPECIMENS: Port was removed, it was not sent to pathology. COMPLICATIONS: None. CONDITION: Stable. DISPOSITION: PACU to home. HISTORY OF PRESENT ILLNESS: The patient is a very adrian 62-year-old female, who has completed treatment for metastatic breast cancer. She is no longer in need of a chemo port. She was then consented for removal. Risks and benefits were discussed in detail and the patient agrees. PROCEDURE NOTE: The patient was brought to the operating room. She was laid supine on the operating room table. SCDs were placed on bilateral lower extremities. Ancef was given in the perioperative period. LMA anesthesia was induced by anesthesia without difficulty. Right chest and neck were prepped and draped in standard sterile fashion. Timeout was performed to verify patient and [facility] [address] [place] [address] OPERATIVE REPORT Name: MICHELLE ARANGO Room: [facility].#: [id number] Admission: 06/12/18 Attend Phys: Sugar Reich DO Discharge: Date of : 53 Report #: [id number] procedure. A 20 mL of 1% lidocaine were injected in the area of her port. Old incision was opened with 15 blade. Cautery was used for hemostasis. Metzenbaums were used to dissect down to the port. Port was gently elevated using a Cecile clamp. Two stitches of 3-0 Prolene were removed without difficulty. Port was then removed while direct pressure was held over the right internal jugular. Port was closely inspected, the entirety of it appeared to be intact, and it was then handed off. Hemostasis was assured within the wound. Wound was then closed in a layered fashion using deep and superficial stitches of 3-0 Vicryl in an inverted interrupted fashion. Skin wound was closed with a running 4-0 Monocryl. A total of 30 mL of 1% lidocaine were used to anesthetize the wound. Wound was then cleansed and covered with Mastisol, Steri-Strips, 4 x 4's, and a Tegaderm. The patient was then allowed to awaken from anesthesia, was extubated and transported to the recovery room with no further difficulties. Counts were correct x 2 at the conclusion of the case. <ELECTRONICALLY SIGNED> By: Sugar Reich DO 06/12/18 1025 0921 0935Chbatool Reich DO /nt
--- NOTE | 2018-06-12 10:52 | EKG ---
[place] [address] ELECTROCARDIOGRAM REPORT Name: MICHELLE ARANGO Room: [facility]#: [id number] Admission: 06/12/18 Attend Phys: Sugar Reich DO Discharge: Date of : 53 Report #: [id number] THIS REPORT FOR: //name// [facility] Test Date: 2018-06-12 Test Time: 08:08:34 Pat Name: MICHELLE ARANGO Department: Room: Gender: F Package Wrapper: : 1955 Requested By: Sugar Reich Order Number: [id number] Ameya MD: Phi Jaimes Measurements Intervals [place] Rate: 68 P: 26 ME: 180 QRS: 35 QRSD: 95 T: 43 QT: 404 QTc: 430 Interpretive Statements Sinus rhythm Borderline low voltage, extremity leads Baseline wander in lead(s) II,III,aVF Compared to ECG 11/01/2017 18:35:49 Sinus tachycardia no longer present Electronically Signed On 06-12-2018 10:52:02 CDT by Phi Jaimes [email or web address] <ELECTRONICALLY SIGNED> By: Phi Jaimes MD, [facility] 06/12/18 1052 0808 0808 Phi Jaimes MD, [facility] /EPI
== END | disposition home or self-care (01) ==
LOC: M.SUR 07:11
PROVIDERS: Surgery
DX: Z45.2 Encounter for adjustment and management of vascular access device (principal); Z98.890 Other specified postprocedural states; Z79.899 Other long term (current) drug therapy

== ENCOUNTER → 2018-06-26 | Outpatient (CLI) | payer OTHER ==
--- NOTE | 2018-06-27 15:48 | SLEEP ---
[address] [address] SLEEP STUDY REPORT Name: NBAMICHELLE SUE Room: [facility]#: [id number] Admission: 06/26/18 Attend Phys: GRIFFIN Escobar Discharge: Date of : 53 Report #: [id number] THIS REPORT FOR: //name// CC: NATHALIE Gibson This study has been reviewed in its entirety by a board certified sleep specialist DATE OF SERVICE: 06/26/2018 SLEEP STUDY REFERRED BY: Erik Abel DNP The patient is a 62-year-old who weighs 230 pounds with a BMI of 40.7. The patient's [place] score was 9. The patient underwent diagnostic study performed at [place] sleep lab. During the night study, the patient spent 417 minutes in bed and slept for 319 minutes with a sleep efficiency of 76%. Sleep latency was 14.1 minutes with a REM latency of 106 minutes. Overall, sleep architecture showed normal stage 1 sleep, reduced stage II sleep, increased N3 sleep, which is 40% total sleep time and normal REM sleep. During the night study, the patient had only one apnea, which was central. No mixed or obstructive apneas and 28 hypopneas. The patient's apnea hypopnea index was 5.5 per hour, REM index of 5.8 per hour and a supine index of 6.9 per hour. EKG monitoring revealed an average heart rate of 70 beats per minute. No sustained arrhythmias observed. PLMS were seen at an index of 11 per hour and 2 per hour caused EEG arousals. Nocturnal oximetry study revealed an average oxygen saturation of 96% with a lowest of 90%. Due to low AHI, the patient did not meet the split night criteria for CPAP initiation. IMPRESSION: 1. Mild sleep apnea-hypopnea syndrome at an apnea hypopnea index of 5.5 per hour. 2. No [place] [address] SLEEP STUDY REPORT Name: MICHELLE ARANGO Room: [facility]#: [id number] Admission: 06/26/18 Attend Phys: GRIFFIN Escobar Discharge: Date of : 53 Report #: [id number] 3. Mild periodic limb movements during sleep without any significant EEG arousals. RECOMMENDATIONS: 1. The patient has only mild sleep apnea. I would recommend initial treatment with weight loss. 2. If the patient remains symptomatic despite effective weight loss, then consider treatment of sleep apnea with either oral appliance or a trial of CPAP. 3. Avoid HIM CLERK depressants. 4. Cautioned regarding driving until the patient's hypersomnia is resolved with the above recommendations. <ELECTRONICALLY SIGNED> By: Jamal Oliva MD 06/27/18 1548 1342 1407Achayito Oliva MD /chioma
== END ==
LOC: M.SLEEPLAB 21:00
DX: G47.30 Sleep apnea, unspecified (principal); G47.61 Periodic limb movement disorder; G47.9 Sleep disorder, unspecified; I10 Essential (primary) hypertension; R53.83 Other fatigue; E66.01 Morbid (severe) obesity due to excess calories; Z68.41 Body mass index [BMI] 40.0-44.9, adult

== ENCOUNTER → 2018-07-11 | Outpatient (CLI) | payer OTHER ==
[2018-07-11 11:13] LABS: ABSOLUTE EOSINOPHILS 0.1 thou/uL (0.0-0.7); ABSOLUTE LYMPHOCYTES 1.2 thou/uL (0.8-5.3); ABSOLUTE MONOCYTES 0.6 thou/uL (0.0-1.2); ABSOLUTE NEUTROPHILS 4.1 thou/uL (1.6-8.1); BASOPHILS 0.6 %; EOSINOPHILS 2.1 %; HEMATOCRIT 35.5 % (37.0-47.0); HEMOGLOBIN 12.1 gm/dL (12.0-15.0); LYMPHOCYTES 19.5 %; MCHC 34.1 g/dL (28.0-37.0); MCV 93.7 fL (80.0-100.0); MONOCYTES 10.5 %; MPV 6.8 fl. (7.2-11.1); NUCLEATED RBCS 0 /100WBC; PLATELET COUNT* 292 thou/uL (150-400); POLYS 67.3 %; RBC 3.79 mil/uL (4.20-5.00); RDW-CV 12.9 % (10.5-14.5); WBC 6.1 thou/uL (4.0-11.0)
[2018-07-11 11:41] LABS: ALBUMIN 3.6 g/dL (3.4-5.0); ALKALINE PHOSPHATASE 81 U/L (46-116); ANION GAP 10 mmol/L (7-16); BUN 31 mg/dL (7-18); CALCIUM 9.3 mg/dL (8.5-10.1); CHLORIDE 102 mmol/L (98-107); CHOLESTEROL 215 mg/dL (<200); CO2 27 mmol/L (21-32); CREATININE 1.1 mg/dL (0.6-1.3); GLUCOSE 159 mg/dL (70-99); HDL CHOLESTEROL 33 mg/dL (>40); LDL CHOLESTEROL 122 mg/dL (<100); SGOT 13 U/L (15-37); SGPT 21 U/L (30-65); SODIUM 139 mmol/L (136-145); TC:HDL 6.5 Ratio (Not establshd); TOTAL BILIRUBIN 0.4 mg/dL (<0.1-1.0); TOTAL PROTEIN 7.4 g/dL (6.4-8.2); TRIGLYCERIDE 302 mg/dL (<150); VLDL 60 mg/dL (<40)
[2018-07-11 11:49] LABS: SERUM ASSESSMENT Clear
== END ==
LOC: M.LAB 10:47
PROVIDERS: Internal Medicine
DX: R53.83 Other fatigue (principal); E78.2 Mixed hyperlipidemia; E11.65 Type 2 diabetes mellitus with hyperglycemia; E11.311 Type 2 diabetes mellitus with unspecified diabetic retinopathy with macular edema; E11.42 Type 2 diabetes mellitus with diabetic polyneuropathy; I10 Essential (primary) hypertension; Z79.4 Long term (current) use of insulin

== ENCOUNTER → 2018-08-02 | Outpatient (CLI) | payer OTHER ==
[2018-08-03 12:05] LABS: GLYCOHEMOGLOBIN (HGB A1C) 8.4 % (4.8-5.6)
== END ==
LOC: M.LAB 10:55
PROVIDERS: Nurse Practitioner
DX: E11.65 Type 2 diabetes mellitus with hyperglycemia (principal); E78.5 Hyperlipidemia, unspecified; Z79.4 Long term (current) use of insulin; Z68.41 Body mass index [BMI] 40.0-44.9, adult

== ENCOUNTER → 2018-08-28 | Outpatient (CLI) | payer OTHER ==
[2018-08-28 10:52] LABS: ABSOLUTE EOSINOPHILS 0.1 thou/uL (0.0-0.7); ABSOLUTE LYMPHOCYTES 1.2 thou/uL (0.8-5.3); ABSOLUTE MONOCYTES 0.6 thou/uL (0.0-1.2); ABSOLUTE NEUTROPHILS 3.2 thou/uL (1.6-8.1); BASOPHILS 0.5 %; EOSINOPHILS 1.5 %; HEMATOCRIT 34.9 % (37.0-47.0); HEMOGLOBIN 11.8 gm/dL (12.0-15.0); LYMPHOCYTES 23.1 %; MCH 32.1 pg (26.0-34.0); MCHC 33.9 g/dL (28.0-37.0); MCV 94.7 fL (80.0-100.0); MONOCYTES 12.6 %; MPV 7.1 fl. (7.2-11.1); NUCLEATED RBCS 0 /100WBC; PLATELET COUNT* 303 thou/uL (150-400); POLYS 62.3 %; RBC 3.68 mil/uL (4.20-5.00); RDW-CV 12.9 % (10.5-14.5); WBC 5.1 thou/uL (4.0-11.0)
[2018-08-28 11:03] LABS: ALBUMIN 3.4 g/dL (3.4-5.0); CALCIUM 8.9 mg/dL (8.5-10.1); POTASSIUM 4.4 mmol/L (3.5-5.1); TOTAL BILIRUBIN 0.2 mg/dL (<0.1-1.0); TOTAL PROTEIN 7.1 g/dL (6.4-8.2)
--- NOTE | 2018-08-30 11:53 | HEMONC ---
[address] [address] HEMATOLOGY ONCOLOGY NOTE Name: NBAMICHELLE PAIZ Room: [facility]..#: [id number] Admission: 08/28/18 Attend Phys: Tejas Castro MD Discharge: Date of : 53 Report #: [id number] THIS REPORT FOR: //name// CC: Mary Castro DATE OF SERVICE: 08/28/2018 DIAGNOSIS: Breast cancer. PRIMARY CARE PHYSICIAN: Luzmaria Delgadillo MD SUBJECTIVE: The patient is a 62-year-old female who was diagnosed with breast cancer back in 2014. At that time, the patient had advanced extensive disease involving the left side into the pectoralis muscle and lymphadenopathy in addition to bone lesion in her right femur with elevated tumor marker. The patient was treated with systemic endocrine treatment with Femara plus Ibrance with a good response, which showed resolution of her metastatic disease. Later on, after that she had a local recurrence and progression in the left breast and axilla. She continued on treatment until 2016 when she had a new adenopathy and she underwent mastectomy followed by lymph node dissection by Dr. Reich. She had node positive disease. She received adjuvant chemotherapy with AC followed by dose-dense T. During that patient had likely some progression midway her chemotherapy. In addition to her chemo, she received post-mastectomy radiation. She has been on adjuvant endocrine treatment with Arimidex and most recently to letrozole. She had a PET/CT scan back in 05/2017, which was unremarkable. The patient continues to feel fairly well. However, she reports unsteady gait. She already had a stress test. REVIEW OF SYSTEMS: All systems were reviewed. It was negative except for the above. PAST MEDICAL HISTORY: Breast cancer as mentioned above, diabetes mellitus, vitamin D deficiency, hypertension. MEDICATIONS: Losartan/hydrochlorothiazide 100/25 mg p.o. daily, metoprolol 50 mg twice a day, Humalog 30 units 4 times a day, Toujeo 40 units at bedtime, letrozole 2.5 mg p.o. daily, Centrum supplement, calcium supplement in addition to vitamin D and magnesium. SOCIAL HISTORY: No smoking, no alcohol abuse, no drug abuse. FAMILY HISTORY: [place] [address] HEMATOLOGY ONCOLOGY NOTE Name: MICHELLE ARANGO Room: [facility]#: [id number] Admission: 08/28/18 Attend Phys: Tejas Castro MD Discharge: Date of : 53 Report #: [id number] PHYSICAL EXAMINATION: VITAL SIGNS: Today, blood pressure is 145/85, pulse 70, respirations 18, temperature is 97, saturations 97% on room air. GENERAL: The patient was sitting in chair, was not in acute distress. LUNGS: Clear to auscultations bilaterally. HEART: Regular rate and rhythm. S1, S2 within normal limits. ABDOMEN: Soft, nontender, nondistended, bowel sounds positive. EXTREMITIES: No edema, no cyanosis, no clubbing. On the axilla left side, the patient has a well-healed scar. ASSESSMENT AND PLAN: A 62-year-old female has been diagnosed with advanced breast cancer as mentioned above. Current treatment at this point is Femara. She had multiple complaints; however, this could be explained by her other medical issues. I would like to obtain CBC, CMP and tumor marker today compared to her previous levels. In addition to that, we will obtain imaging to evaluate whether she has any recurrent disease. Follow up based on her CT scan. <ELECTRONICALLY SIGNED> By: Tejas Castro MD 08/30/18 1153 1023 1143Tejas Castro MD /nt
== END ==
LOC: M.RTH 05:27
PROVIDERS: Internal Medicine
DX: C50.912 Malignant neoplasm of unspecified site of left female breast (principal)

== ENCOUNTER → 2018-09-04 | Outpatient (CLI) | payer OTHER | LOC: M.CT 08-28 11:37 | DX: Z08 Encounter for follow-up examination after completed treatment for malignant neoplasm (principal); K42.9 Umbilical hernia without obstruction or gangrene; M48.54XA Collapsed vertebra, not elsewhere classified, thoracic region, initial encounter for fracture; J84.10 Pulmonary fibrosis, unspecified; K76.0 Fatty (change of) liver, not elsewhere classified; J98.4 Other disorders of lung; N20.0 Calculus of kidney; R91.1 Solitary pulmonary nodule; M46.04 Spinal enthesopathy, thoracic region; M89.9 Disorder of bone, unspecified; Z90.13 Acquired absence of bilateral breasts and nipples; Z85.3 Personal history of malignant neoplasm of breast; Z85.42 Personal history of malignant neoplasm of other parts of uterus ==

== ENCOUNTER → 2018-11-30 | Outpatient (CLI) | payer OTHER ==
[2018-11-30 11:46] LABS: ABSOLUTE EOSINOPHILS 0.1 thou/uL (0.0-0.7); ABSOLUTE LYMPHOCYTES 1.1 thou/uL (0.8-5.3); ABSOLUTE MONOCYTES 0.4 thou/uL (0.0-1.2); ABSOLUTE NEUTROPHILS 2.9 thou/uL (1.6-8.1); BASOPHILS 0.7 %; EOSINOPHILS 2.2 %; HEMATOCRIT 37.6 % (37.0-47.0); MCH 32.5 pg (26.0-34.0); MCHC 34.5 g/dL (28.0-37.0); MCV 94.3 fL (80.0-100.0); MONOCYTES 8.8 %; MPV 6.6 fl. (7.2-11.1); NUCLEATED RBCS 0 /100WBC; PLATELET COUNT* 284 thou/uL (150-400); POLYS 64.3 %; RBC 3.99 mil/uL (4.20-5.00); WBC 4.5 thou/uL (4.0-11.0)
[2018-11-30 11:58] LABS: ALBUMIN 3.4 g/dL (3.4-5.0); CALCIUM 9.6 mg/dL (8.5-10.1); POTASSIUM 4.3 mmol/L (3.5-5.1); TOTAL BILIRUBIN 0.3 mg/dL (<0.1-1.0); TOTAL PROTEIN 7.2 g/dL (6.4-8.2)
== END ==
LOC: M.LAB 11:27
PROVIDERS: Internal Medicine Hematology & Oncology
DX: C50.112 Malignant neoplasm of central portion of left female breast (principal); Z17.0 Estrogen receptor positive status [ER+]

== ENCOUNTER → 2018-12-21 | Outpatient (CLI) | payer OTHER ==
[2018-12-21 11:27] LABS: ABSOLUTE EOSINOPHILS 0.1 thou/uL (0.0-0.7); ABSOLUTE MONOCYTES 0.6 thou/uL (0.0-1.2); BASOPHILS 0.7 %; EOSINOPHILS 1.8 %; HEMATOCRIT 37.8 % (37.0-47.0); HEMOGLOBIN 12.8 gm/dL (12.0-15.0); LYMPHOCYTES 21.3 %; MCHC 33.8 g/dL (28.0-37.0); MCV 94.7 fL (80.0-100.0); MONOCYTES 13.4 %; MPV 6.8 fl. (7.2-11.1); NUCLEATED RBCS 0 /100WBC; PLATELET COUNT* 281 thou/uL (150-400); POLYS 62.8 %; RBC 3.99 mil/uL (4.20-5.00); RDW-CV 12.9 % (10.5-14.5); WBC 4.8 thou/uL (4.0-11.0)
[2018-12-21 11:47] LABS: ALBUMIN 3.3 g/dL (3.4-5.0); CALCIUM 8.9 mg/dL (8.5-10.1); CREATININE 0.8 mg/dL (0.6-1.3); POTASSIUM 4.8 mmol/L (3.5-5.1); TOTAL BILIRUBIN 0.3 mg/dL (<0.1-1.0); TOTAL PROTEIN 7.1 g/dL (6.4-8.2)
== END ==
LOC: M.LAB 10:56
PROVIDERS: Internal Medicine Hematology & Oncology
DX: C50.112 Malignant neoplasm of central portion of left female breast (principal); Z17.0 Estrogen receptor positive status [ER+]

== ENCOUNTER → 2019-03-11 | Outpatient (CLI) | payer OTHER ==
[2019-03-11 11:48] LABS: CHOLESTEROL 279 mg/dL (<200); HDL CHOLESTEROL 32 mg/dL (>40); LDL CHOLESTEROL 170 mg/dL (<100); TC:HDL 8.7 Ratio (Not establshd); TRIGLYCERIDE 389 mg/dL (<150); VLDL 78 mg/dL (<40)
[2019-03-11 11:50] LABS: SERUM ASSESSMENT Clear
[2019-03-12 02:10] LABS: GLYCOHEMOGLOBIN (HGB A1C) 11.9 % (4.8-5.6)
== END ==
LOC: M.LAB 10:39
PROVIDERS: Nurse Practitioner
DX: C50.112 Malignant neoplasm of central portion of left female breast (principal); E11.65 Type 2 diabetes mellitus with hyperglycemia; E78.5 Hyperlipidemia, unspecified; I10 Essential (primary) hypertension; I47.1 Supraventricular tachycardia; R35.0 Frequency of micturition; E55.9 Vitamin D deficiency, unspecified; I89.0 Lymphedema, not elsewhere classified; J30.89 Other allergic rhinitis; M62.89 Other specified disorders of muscle; Z17.0 Estrogen receptor positive status [ER+]; Z68.41 Body mass index [BMI] 40.0-44.9, adult; Z79.4 Long term (current) use of insulin

== ENCOUNTER → 2019-04-17 | Outpatient (CLI) | payer OTHER | LOC: M.LAB 15:25 | DX: E87.6 Hypokalemia (principal) ==

== ENCOUNTER → 2019-06-12 | Outpatient (CLI) | payer OTHER ==
[2019-06-12 12:22] LABS: ABSOLUTE EOSINOPHILS 0.1 thou/uL (0.0-0.7); ABSOLUTE LYMPHOCYTES 1.4 thou/uL (0.8-5.3); ABSOLUTE MONOCYTES 0.3 thou/uL (0.0-1.2); ABSOLUTE NEUTROPHILS 2.5 thou/uL (1.6-8.1); BASOPHILS 0.7 %; EOSINOPHILS 1.5 %; HEMATOCRIT 36.1 % (37.0-47.0); HEMOGLOBIN 12.4 gm/dL (12.0-15.0); LYMPHOCYTES 32.9 %; MCH 29.3 pg (26.0-34.0); MCHC 34.5 g/dL (28.0-37.0); MONOCYTES 6.3 %; MPV 6.6 fl. (7.2-11.1); NUCLEATED RBCS 0 /100WBC; PLATELET COUNT* 168 thou/uL (150-400); POLYS 58.6 %; RBC 4.25 mil/uL (4.20-5.00); RDW-CV 17.2 % (10.5-14.5); WBC 4.3 thou/uL (4.0-11.0)
[2019-06-12 12:36] LABS: ALBUMIN 3.2 g/dL (3.4-5.0); ALKALINE PHOSPHATASE 63 U/L (46-116); ANION GAP 10 mmol/L (7-16); BUN 34 mg/dL (7-18); CALCIUM 9.1 mg/dL (8.5-10.1); CHLORIDE 107 mmol/L (98-107); CO2 21 mmol/L (21-32); CREATININE 1.7 mg/dL (0.6-1.3); DIRECT BILIRUBIN 0.1 mg/dL (<0.1-0.3); GLUCOSE 88 mg/dL (70-99); POTASSIUM 4.2 mmol/L (3.5-5.1); SGOT 18 U/L (15-37); SGPT 23 U/L (30-65); SODIUM 138 mmol/L (136-145); TOTAL BILIRUBIN 0.3 mg/dL (<0.1-1.0); TOTAL PROTEIN 7.5 g/dL (6.4-8.2)
[2019-06-12 12:49] LABS: CHOLESTEROL 200 mg/dL (<200); HDL CHOLESTEROL 53 mg/dL (>40); LDL CHOLESTEROL 102 mg/dL (<100); TC:HDL 3.8 Ratio (Not establshd); TRIGLYCERIDE 227 mg/dL (<150); VLDL 45 mg/dL (<40)
[2019-06-12 12:51] LABS: SERUM ASSESSMENT Clear
[2019-06-13 02:07] LABS: GLYCOHEMOGLOBIN (HGB A1C) 9.8 % (4.8-5.6)
== END ==
LOC: M.LAB 11:49
PROVIDERS: Registered Nurse Diabetes Educator
DX: E11.65 Type 2 diabetes mellitus with hyperglycemia (principal); I10 Essential (primary) hypertension; E55.9 Vitamin D deficiency, unspecified; E78.5 Hyperlipidemia, unspecified; Z79.4 Long term (current) use of insulin; Z79.899 Other long term (current) drug therapy; Z68.38 Body mass index [BMI] 38.0-38.9, adult

== ENCOUNTER 2019-07-12 11:30 | Emergency (ER) | payer OTHER ==
[~2019-07-12] VITALS: Ht 160 cm; Wt 98.4 kg
[2019-07-12] MEDS ORDERED: NORCO 5-325 TA1 EAC1 PO (12:40)
[2019-07-12 12:54] VITALS: BP 159/77
== END 2019-07-12 12:55 | disposition home or self-care (01) ==
LOC: M.ERS 11:30
DX: S62.655A Nondisplaced fracture of middle phalanx of left ring finger, initial encounter for closed fracture (principal); M25.552 Pain in left hip; I10 Essential (primary) hypertension; E11.9 Type 2 diabetes mellitus without complications; E78.5 Hyperlipidemia, unspecified; Z98.890 Other specified postprocedural states; Z90.710 Acquired absence of both cervix and uterus; Z90.49 Acquired absence of other specified parts of digestive tract; Z79.4 Long term (current) use of insulin; Z85.3 Personal history of malignant neoplasm of breast; Z90.13 Acquired absence of bilateral breasts and nipples; Z91.048 Other nonmedicinal substance allergy status; Z88.8 Allergy status to other drugs, medicaments and biological substances; W10.8XXA Fall (on) (from) other stairs and steps, initial encounter; Y93.89 Activity, other specified; Y92.89 Other specified places as the place of occurrence of the external cause; Y99.8 Other external cause status

== ENCOUNTER → 2019-09-12 | Outpatient (CLI) | payer OTHER ==
[~2019-09-12] MED LIST changes: +NORCO 5-325 TA1 EAC1 PO
[2019-09-12 12:12] LABS: ABSOLUTE EOSINOPHILS 0.1 thou/uL (0.0-0.7); ABSOLUTE LYMPHOCYTES 1.2 thou/uL (0.8-5.3); ABSOLUTE MONOCYTES 0.3 thou/uL (0.0-1.2); ABSOLUTE NEUTROPHILS 2.6 thou/uL (1.6-8.1); BASOPHILS 0.8 %; HEMATOCRIT 29.6 % (37.0-47.0); HEMOGLOBIN 10.4 gm/dL (12.0-15.0); LYMPHOCYTES 28.9 %; MCH 36.1 pg (26.0-34.0); MCHC 35.3 g/dL (28.0-37.0); MCV 102.5 fL (80.0-100.0); MONOCYTES 7.1 %; MPV 6.3 fl. (7.2-11.1); NUCLEATED RBCS 0 /100WBC; PLATELET COUNT* 254 thou/uL (150-400); POLYS 61.2 %; RBC 2.89 mil/uL (4.20-5.00); RDW-CV 15.9 % (10.5-14.5); WBC 4.3 thou/uL (4.0-11.0)
[2019-09-12 12:18] LABS: CALCIUM 9.3 mg/dL (8.5-10.1); CREATININE 1.9 mg/dL (0.6-1.3); POTASSIUM 5.2 mmol/L (3.5-5.1)
[2019-09-13 02:06] LABS: GLYCOHEMOGLOBIN (HGB A1C) 7.3 % (4.8-5.6)
== END ==
LOC: M.LAB 11:45
DX: C50.112 Malignant neoplasm of central portion of left female breast (principal); E11.65 Type 2 diabetes mellitus with hyperglycemia; E55.9 Vitamin D deficiency, unspecified; R79.89 Other specified abnormal findings of blood chemistry; Z79.4 Long term (current) use of insulin; Z79.899 Other long term (current) drug therapy

== ENCOUNTER → 2019-10-09 | Outpatient (CLI) | payer OTHER ==
[2019-10-09 12:53] LABS: ABSOLUTE BASOPHILS 0.1 thou/uL (0.0-0.2); ABSOLUTE EOSINOPHILS 0.1 thou/uL (0.0-0.7); ABSOLUTE LYMPHOCYTES 1.4 thou/uL (0.8-5.3); ABSOLUTE MONOCYTES 0.9 thou/uL (0.0-1.2); ABSOLUTE NEUTROPHILS 5.4 thou/uL (1.6-8.1); BASOPHILS 0.8 %; EOSINOPHILS 1.6 %; HEMATOCRIT 35.3 % (37.0-47.0); HEMOGLOBIN 12.3 gm/dL (12.0-15.0); LYMPHOCYTES 17.5 %; MCH 35.7 pg (26.0-34.0); MCHC 34.9 g/dL (28.0-37.0); MCV 102.4 fL (80.0-100.0); MONOCYTES 11.6 %; MPV 6.8 fl. (7.2-11.1); NUCLEATED RBCS 0 /100WBC; PLATELET COUNT* 384 thou/uL (150-400); POLYS 68.5 %; RBC 3.45 mil/uL (4.20-5.00); RDW-CV 13.7 % (10.5-14.5); WBC 7.9 thou/uL (4.0-11.0)
[2019-10-09 13:36] LABS: ALBUMIN 3.4 g/dL (3.4-5.0); CALCIUM 9.7 mg/dL (8.5-10.1); CREATININE 1.2 mg/dL (0.6-1.3); POTASSIUM 4.6 mmol/L (3.5-5.1); TOTAL BILIRUBIN 0.3 mg/dL (<0.1-1.0); TOTAL PROTEIN 7.5 g/dL (6.4-8.2)
== END ==
LOC: M.LAB 12:38
PROVIDERS: ATTEND Internal Medicine Hematology & Oncology
DX: C50.112 Malignant neoplasm of central portion of left female breast (principal); C79.51 Secondary malignant neoplasm of bone; Z85.42 Personal history of malignant neoplasm of other parts of uterus; Z79.01 Long term (current) use of anticoagulants

== ENCOUNTER → 2019-11-01 | Outpatient (CLI) | payer OTHER ==
[2019-11-01 13:24] LABS: ALBUMIN 3.1 g/dL (3.4-5.0); CALCIUM 7.7 mg/dL (8.5-10.1); CREATININE 1.7 mg/dL (0.6-1.3); PHOSPHORUS* 2.8 mg/dL (2.5-4.9); POTASSIUM 4.4 mmol/L (3.5-5.1)
[2019-11-01 17:14] LABS: URINE BILIRUBIN NEGATIVE (Negative); URINE BLOOD NEGATIVE (Negative); URINE CLARITY CLEAR; URINE COLOR YELLOW; URINE GLUCOSE-RANDOM 3+ (Negative); URINE KETONES NEGATIVE (Negative); URINE LEUKOCYTES-REFLEX NEGATIVE (Negative); URINE NITRITE-REFLEX NEGATIVE (Negative); URINE PROTEIN 1+ (Negative); URINE UROBILINOGEN 0.2 E.U./dl (0.2-1.0)
== END ==
LOC: M.LAB 12:15
PROVIDERS: ATTEND Hospitalist
DX: I12.9 Hypertensive chronic kidney disease with stage 1 through stage 4 chronic kidney disease, or unspecified chronic kidney disease (principal); N18.3 Chronic kidney disease, stage 3 (moderate); N17.9 Acute kidney failure, unspecified

== ENCOUNTER 2020-02-26 14:09 | Observation (INO) | payer OTHER, MEDICARE ==
[~2020-02-26] VITALS: Ht 160 cm; Wt 93.0 kg
[~2020-02-26 14:09] MED LIST changes: -ELIQUIS2.5 MG PO
[2020-02-26 14:21] VITALS: BP 149/77
[2020-02-26 15:32] LABS: ABSOLUTE EOSINOPHILS 0.1 thou/uL (0.0-0.7); ABSOLUTE LYMPHOCYTES 0.8 thou/uL (0.8-5.3); ABSOLUTE MONOCYTES 0.9 thou/uL (0.0-1.2); ABSOLUTE NEUTROPHILS 6.6 thou/uL (1.6-8.1); BASOPHILS 0.5 %; EOSINOPHILS 0.7 %; HEMATOCRIT 37.7 % (37.0-47.0); HEMOGLOBIN 12.7 gm/dL (12.0-15.0); LYMPHOCYTES 9.7 %; MCH 31.7 pg (26.0-34.0); MCHC 33.6 g/dL (28.0-37.0); MCV 94.3 fL (80.0-100.0); MONOCYTES 10.2 %; MPV 6.2 fl. (7.2-11.1); NUCLEATED RBCS 0 /100WBC; PLATELET COUNT* 391 thou/uL (150-400); POLYS 78.9 %; RDW-CV 13.2 % (10.5-14.5); WBC 8.4 thou/uL (4.0-11.0)
[2020-02-26 15:42] LABS: APTT 24.6 Seconds (25.0-31.3); CALCIUM 9.8 mg/dL (8.5-10.1); CREATININE 1.9 mg/dL (0.6-1.3); POTASSIUM 5.1 mmol/L (3.5-5.1); PROTIME 9.8 Seconds (9.20-11.50)
[2020-02-26 15:46] LABS: INR < 0.9
[2020-02-26 15:54] LABS: ALBUMIN 3.3 g/dL (3.4-5.0); CK-MB MASS 1.5 ng/mL (<0.5-3.6); TOTAL BILIRUBIN 0.2 mg/dL (<0.1-1.0); TOTAL PROTEIN 7.7 g/dL (6.4-8.2)
--- NOTE | 2020-02-26 16:37 | EKG ---
[place] [address] ELECTROCARDIOGRAM REPORT Name: MICHELLE ARANGO Room: [address]#: [id number] Admission: 02/26/20 Attend Phys: Juvencio Phelps, Discharge: Date of : 53 Date of Service: 02/26/20 1535 Report #: [id number] THIS REPORT FOR: //name// [facility] ED Test Date: 2020-02-26 Test Time: 15:35:43 Pat Name: MICHELLE ARANGO Department: Room: [facility] Gender: F Jewelry Salesperson: : 1955 Requested By: Fidel Murrieta Order Number: [id number] MD: Phi Jaimes Measurements Intervals [place] Rate: 98 P: 43 [place]: 165 QRS: 30 QRSD: 95 T: 44 QT: 345 QTc: 441 Interpretive Statements Sinus rhythm Baseline wander in lead(s) V3 Compared to ECG 06/12/2018 08:08:34 No significant changes Electronically Signed On 02-26-2020 16:36:51 PRODUCT SUPPORT ENGINEER by Phi Jaimes [email or web address] <ELECTRONICALLY SIGNED> By: Phi Jaimes MD, [facility] 02/26/20 1636 1535 1535 Phi Jaimes MD, [facility] /EPI
[2020-02-26 17:30] VITALS: BP 160/91
[2020-02-26 18:03] VITALS: BP 180/81
[2020-02-26 20:00] VITALS: BP 192/90
[2020-02-26] MEDS ORDERED: ELIQUIS2.5 MG PO (21:23)
[2020-02-27] VITALS: BP 163/78
[2020-02-27 04:00] VITALS: BP 159/84
[2020-02-27 08:00] VITALS: BP 141/79
[2020-02-27 11:11] LABS: SOURCE PLEURAL FLUID
[2020-02-27 11:12] LABS: CLARITY SLIGHTLY HAZY; TOTAL VOLUME 1300 ml
[2020-02-27 11:34] LABS: BF RBC <1000 /mm3; TOTAL CELL COUNT 705 /mm3
[2020-02-27 12:42] LABS: BF LYMPHOCYTES 88 %; BF MONOCYTES 9 %; BF POLYS 2 %; BF TISSUE 6 /100 WBC; BODY FLUID BANDS 1 %
[2020-02-27 17:11] VITALS: BP 141/79
[2020-02-28 14:08] LABS: BODY FLUID PROTEIN 4.3 g/dL (())
== END 2020-02-27 17:59 | disposition home or self-care (01) ==
LOC: M.ERS 14:09 → M.2W 16:01 → M.TBA-ER 16:01 → M.2W 18:37
PROVIDERS: Family Medicine; ADMIT Internal Medicine; ATTEND Internal Medicine
DX: J90 Pleural effusion, not elsewhere classified (principal); C50.919 Malignant neoplasm of unspecified site of unspecified female breast; I12.9 Hypertensive chronic kidney disease with stage 1 through stage 4 chronic kidney disease, or unspecified chronic kidney disease; E11.22 Type 2 diabetes mellitus with diabetic chronic kidney disease; N18.4 Chronic kidney disease, stage 4 (severe); E44.1 Mild protein-calorie malnutrition; E78.5 Hyperlipidemia, unspecified; E66.9 Obesity, unspecified; Z68.36 Body mass index [BMI] 36.0-36.9, adult; Z79.899 Other long term (current) drug therapy; Z79.4 Long term (current) use of insulin; Z20.828 Contact with and (suspected) exposure to other viral communicable diseases

== ENCOUNTER → 2020-02-26 | Outpatient (CLI) | payer OTHER, MEDICARE ==
[~2020-02-26] MED LIST changes: +ELIQUIS2.5 MG PO
[2020-02-26 12:59] LABS: ABSOLUTE EOSINOPHILS 0.1 thou/uL (0.0-0.7); ABSOLUTE LYMPHOCYTES 1.2 thou/uL (0.8-5.3); ABSOLUTE MONOCYTES 0.8 thou/uL (0.0-1.2); ABSOLUTE NEUTROPHILS 5.2 thou/uL (1.6-8.1); BASOPHILS 0.6 %; HEMATOCRIT 37.7 % (37.0-47.0); HEMOGLOBIN 12.6 gm/dL (12.0-15.0); LYMPHOCYTES 16.2 %; MCH 31.7 pg (26.0-34.0); MCHC 33.4 g/dL (28.0-37.0); MCV 94.7 fL (80.0-100.0); MONOCYTES 11.2 %; NUCLEATED RBCS 0 /100WBC; PLATELET COUNT* 391 thou/uL (150-400); RBC 3.98 mil/uL (4.20-5.00); RDW-CV 12.8 % (10.5-14.5); WBC 7.3 thou/uL (4.0-11.0)
[2020-02-26 13:21] LABS: ALBUMIN 3.3 g/dL (3.4-5.0); CALCIUM 10.2 mg/dL (8.5-10.1); CREATININE 1.9 mg/dL (0.6-1.3); DIRECT BILIRUBIN 0.1 mg/dL (<0.1-0.3); MAGNESIUM 2.8 mg/dL (1.8-2.4); POTASSIUM 4.5 mmol/L (3.5-5.1); TOTAL BILIRUBIN 0.2 mg/dL (<0.1-1.0); TOTAL PROTEIN 7.9 g/dL (6.4-8.2)
[2020-02-27 02:06] LABS: GLYCOHEMOGLOBIN (HGB A1C) 10.4 % (4.8-5.6)
== END ==
LOC: M.RAD 12:42
PROVIDERS: ATTEND Registered Nurse Diabetes Educator
DX: J90 Pleural effusion, not elsewhere classified (principal); E11.65 Type 2 diabetes mellitus with hyperglycemia; I89.0 Lymphedema, not elsewhere classified; E55.9 Vitamin D deficiency, unspecified; R25.2 Cramp and spasm; Z79.4 Long term (current) use of insulin; Z88.8 Allergy status to other drugs, medicaments and biological substances; Z79.899 Other long term (current) drug therapy

== ENCOUNTER 2020-03-01 14:35 | Emergency (ER) | payer OTHER, MEDICARE ==
[~2020-03-01] VITALS: Ht 160 cm; Wt 92.5 kg
[~2020-03-01 14:35] MED LIST changes: +ELIQUIS2.5 MG PO
[2020-03-01 16:28] LABS: ABSOLUTE BASOPHILS 0.1 thou/uL (0.0-0.2); ABSOLUTE EOSINOPHILS 0.1 thou/uL (0.0-0.7); ABSOLUTE MONOCYTES 0.9 thou/uL (0.0-1.2); ABSOLUTE NEUTROPHILS 6.8 thou/uL (1.6-8.1); BASOPHILS 0.6 %; HEMATOCRIT 36.2 % (37.0-47.0); HEMOGLOBIN 12.3 gm/dL (12.0-15.0); LYMPHOCYTES 11.1 %; MCH 31.9 pg (26.0-34.0); MCHC 33.9 g/dL (28.0-37.0); MONOCYTES 10.1 %; MPV 6.1 fl. (7.2-11.1); NUCLEATED RBCS 0 /100WBC; PLATELET COUNT* 363 thou/uL (150-400); POLYS 77.2 %; RBC 3.85 mil/uL (4.20-5.00); RDW-CV 12.8 % (10.5-14.5); WBC 8.9 thou/uL (4.0-11.0)
[2020-03-01 16:39] LABS: ICTOTEST (BILI CONFIRMATORY) Negative (Negative); URINE BILIRUBIN 1+ (Negative); URINE BLOOD 3+ (Negative); URINE CLARITY CLOUDY; URINE COLOR YELLOW; URINE GLUCOSE-RANDOM TRACE (Negative); URINE KETONES NEGATIVE (Negative); URINE LEUKOCYTES TRACE (Negative); URINE NITRITE NEGATIVE (Negative); URINE PROTEIN 3+ (Negative); URINE SPECIFIC GRAVITY >= 1.030 (1.005-1.030); URINE UROBILINOGEN 0.2 E.U./dl (0.2-1.0)
[2020-03-01 16:42] LABS: CALCIUM 9.6 mg/dL (8.5-10.1); CREATININE 1.6 mg/dL (0.6-1.3); POTASSIUM 4.2 mmol/L (3.5-5.1)
[2020-03-01 16:46] LABS: ALBUMIN 3.2 g/dL (3.4-5.0); TOTAL BILIRUBIN 0.2 mg/dL (<0.1-1.0); TOTAL PROTEIN 7.8 g/dL (6.4-8.2)
[2020-03-01 16:46] LABS: SQUAMOUS 0-3 Few /LPF (0-3)
[2020-03-01 16:47] LABS: CASTS None Seen /LPF (None Seen); CRYSTALS None Seen /LPF (None Seen); URINE RBC >20 Many /HPF (0-2); URINE WBC 6-15 Few /HPF (0-5)
[2020-03-01 19:12] VITALS: BP 147/70
--- NOTE | 2020-03-02 10:11 | EKG ---
[place] [address] ELECTROCARDIOGRAM REPORT Name: MICHELLE ARANGO Room: [facility]#: [id number] Admission: 03/01/20 Attend Phys: Discharge: 03/01/20 Date of : 53 Date of Service: 03/01/20 1455 Report #: [id number] THIS REPORT FOR: //name// [facility] ED Test Date: 2020-03-01 Test Time: 14:55:36 Pat Name: MICHELLE ARANGO Department: Room: Gender: Blast Furnace Checker: DERIC : 1955 Requested By: Francisco Rubio Order Number: [id number] MD: Vinh Sharif Measurements Intervals [place] Rate: 71 P: [place]: QRS: 44 QRSD: 92 T: 63 QT: 406 QTc: 442 Interpretive Statements Atrial flutter Borderline low voltage, extremity leads Abnormal R-wave progression, late transition Baseline wander in lead(s) V4 Compared to ECG 02/26/2020 15:35:43 Sinus rhythm no longer present Electronically Signed On 03-02-2020 10:11:22 CLAY MAKER by Vinh Sharif [email or web address] <ELECTRONICALLY SIGNED> By: Vinh Sharif MD, FACC 03/02/20 1011 1455 1455 Vinh Sharif MD, FACC /EPI
== END 2020-03-01 19:12 | disposition home or self-care (01) ==
LOC: M.ERS 14:35
PROVIDERS: Emergency Medicine
DX: E86.0 Dehydration (principal); C50.919 Malignant neoplasm of unspecified site of unspecified female breast; N39.0 Urinary tract infection, site not specified; I10 Essential (primary) hypertension; E78.5 Hyperlipidemia, unspecified; Z88.8 Allergy status to other drugs, medicaments and biological substances; Z79.4 Long term (current) use of insulin; Z79.899 Other long term (current) drug therapy; Z98.890 Other specified postprocedural states; Z90.49 Acquired absence of other specified parts of digestive tract; Z90.710 Acquired absence of both cervix and uterus

== ENCOUNTER 2020-03-12 09:50 | Inpatient (IN) | payer OTHER, MEDICARE ==
[~2020-03-12] VITALS: Ht 160 cm; Wt 92.5 kg
[~2020-03-12 09:50] MED LIST changes: +LANTUS100 UNIT/M SUBQ
[2020-03-12 09:54] VITALS: BP 186/90
[2020-03-12 11:11] LABS: ABSOLUTE EOSINOPHILS 0.1 thou/uL (0.0-0.7); ABSOLUTE LYMPHOCYTES 0.6 thou/uL (0.8-5.3); ABSOLUTE MONOCYTES 0.5 thou/uL (0.0-1.2); ABSOLUTE NEUTROPHILS 6.5 thou/uL (1.6-8.1); BASOPHILS 0.6 %; EOSINOPHILS 1.1 %; HEMATOCRIT 34.4 % (37.0-47.0); HEMOGLOBIN 11.6 gm/dL (12.0-15.0); LYMPHOCYTES 8.2 %; MCH 31.3 pg (26.0-34.0); MCHC 33.7 g/dL (28.0-37.0); MCV 92.8 fL (80.0-100.0); MONOCYTES 6.4 %; NUCLEATED RBCS 0 /100WBC; PLATELET COUNT* 385 thou/uL (150-400); POLYS 83.7 %; RBC 3.71 mil/uL (4.20-5.00); WBC 7.8 thou/uL (4.0-11.0)
[2020-03-12 11:21] LABS: CALCIUM 8.9 mg/dL (8.5-10.1); CREATININE 1.6 mg/dL (0.6-1.3); POTASSIUM 5.2 mmol/L (3.5-5.1)
[2020-03-12 11:25] LABS: APTT 24.3 Seconds (25.0-31.3); PROTIME 10.2 Seconds (9.20-11.50)
[2020-03-12 11:33] LABS: ALBUMIN 2.9 g/dL (3.4-5.0); TOTAL BILIRUBIN 0.3 mg/dL (<0.1-1.0)
--- NOTE | 2020-03-12 15:12 | EKG ---
[place] [address] ELECTROCARDIOGRAM REPORT Name: MICHELLE ARANGO Room: [place] [address] ADM IN [facility]#: [id number] Admission: 03/12/20 Attend Phys: Jamila Ruelas, Discharge: Date of : 53 Date of Service: 03/12/20 1104 Report #: [id number] THIS REPORT FOR: //name// [facility] ED Test Date: 2020-03-12 Test Time: 11:04:49 Pat Name: MICHELLE ARANGO Department: Room: [facility] Gender: F Protective Officer: BONNY : 1955 Requested By: Robin Krishnan Order Number: [id number] MD: Phi Jaimes Measurements Intervals [place] Rate: 89 P: 32 AR: 162 QRS: 32 QRSD: 95 T: 33 QT: 375 QTc: 457 Interpretive Statements Sinus rhythm Borderline low voltage, extremity leads Baseline wander in lead(s) V5 Compared to ECG 03/01/2020 14:55:36 Atrial flutter no longer present Electronically Signed On 03-12-2020 15:12:24 NET MENDER by Phi Jaimes [email or web address] <ELECTRONICALLY SIGNED> By: Phi Jaimes MD, FAC 03/12/20 1512 1104 1104 Phi Jaimes MD, FAC /EPI
[2020-03-12 18:41] VITALS: BP 173/88
[2020-03-12 18:45] VITALS: BP 120/76
[2020-03-12] MEDS ORDERED: ZETIA10 MG PO (19:16)
[2020-03-12 20:00] VITALS: BP 127/46
[2020-03-13] VITALS: BP 156/86
[2020-03-13 04:00] VITALS: BP 133/74
[2020-03-13 04:47] LABS: HEMATOCRIT 29.9 % (37.0-47.0); HEMOGLOBIN 10.2 gm/dL (12.0-15.0); MCH 31.5 pg (26.0-34.0); MCHC 34.1 g/dL (28.0-37.0); MCV 92.4 fL (80.0-100.0); MPV 6.3 fl. (7.2-11.1); RBC 3.24 mil/uL (4.20-5.00); RDW-CV 13.1 % (10.5-14.5); WBC 6.3 thou/uL (4.0-11.0)
[2020-03-13 05:04] LABS: ALBUMIN 2.5 g/dL (3.4-5.0); CALCIUM 7.9 mg/dL (8.5-10.1); CREATININE 1.5 mg/dL (0.6-1.3); MAGNESIUM 2.2 mg/dL (1.8-2.4); TOTAL BILIRUBIN 0.1 mg/dL (<0.1-1.0); TOTAL PROTEIN 6.3 g/dL (6.4-8.2)
[2020-03-13 08:10] VITALS: BP 138/68
[2020-03-13 12:04] VITALS: BP 134/61
[2020-03-13 16:22] VITALS: BP 131/71
[2020-03-13 20:00] VITALS: BP 138/64
[2020-03-14] VITALS: BP 138/55
[2020-03-14 04:00] VITALS: BP 141/90
[2020-03-14 04:13] LABS: HEMATOCRIT 34.3 % (37.0-47.0); HEMOGLOBIN 11.5 gm/dL (12.0-15.0); MCH 31.2 pg (26.0-34.0); MCHC 33.4 g/dL (28.0-37.0); MCV 93.3 fL (80.0-100.0); MPV 6.4 fl. (7.2-11.1); NUCLEATED RBCS 0 /100WBC; PLATELET COUNT* 392 thou/uL (150-400); RBC 3.68 mil/uL (4.20-5.00); RDW-CV 13.4 % (10.5-14.5); WBC 7.9 thou/uL (4.0-11.0)
[2020-03-14 04:23] LABS: ALBUMIN 2.8 g/dL (3.4-5.0); CALCIUM 7.8 mg/dL (8.5-10.1); CREATININE 1.5 mg/dL (0.6-1.3); MAGNESIUM 2.4 mg/dL (1.8-2.4); POTASSIUM 4.5 mmol/L (3.5-5.1); TOTAL BILIRUBIN 0.1 mg/dL (<0.1-1.0)
[2020-03-14 06:54] LABS: ABSOLUTE LYMPHOCYTES 0.4 thou/uL (0.8-5.3); ABSOLUTE MONOCYTES 0.1 thou/uL (0.0-1.2); ABSOLUTE NEUTROPHILS 7.4 thou/uL (1.6-8.1); ANISOCYTOSIS 1+; PLATELET ESTIMATE ADEQUATE; POIKILOCYTOSIS 1+
[2020-03-14 08:00] VITALS: BP 142/62
[2020-03-14 16:04] VITALS: BP 165/75
[2020-03-14 21:29] VITALS: BP 154/65
[2020-03-14 23:43] VITALS: BP 144/55
[2020-03-15 04:00] VITALS: BP 138/63
[2020-03-15 04:16] LABS: HEMATOCRIT 30.9 % (37.0-47.0); HEMOGLOBIN 10.6 gm/dL (12.0-15.0); MCH 31.7 pg (26.0-34.0); MCHC 34.1 g/dL (28.0-37.0); MCV 92.9 fL (80.0-100.0); RBC 3.33 mil/uL (4.20-5.00); RDW-CV 13.4 % (10.5-14.5); WBC 10.5 thou/uL (4.0-11.0)
[2020-03-15 04:31] LABS: CALCIUM 7.6 mg/dL (8.5-10.1); CREATININE 1.7 mg/dL (0.6-1.3); POTASSIUM 3.8 mmol/L (3.5-5.1)
[2020-03-15 08:00] VITALS: BP 107/53
[2020-03-15] MEDS ORDERED: PROTONIX40 M2 PO (10:17)
[2020-03-15] MEDS ORDERED: *ELECTROLYTE REPLACE PO (10:17)
[2020-03-15] MEDS ORDERED: PEPCID20 MG PO (10:17)
[2020-03-15 12:07] VITALS: BP 109/49
[2020-03-15 13:14] VITALS: BP 109/49
--- NOTE | 2020-03-15 19:06 | CON ---
[address] [address] CONSULTATION Name: NBAMICHELLE S Room: [address] IN .R.#: [id number] Admission: 03/12/20 Attend Phys: Jamila Ruelas MD Discharge: 03/15/20 Date of : 53 Report #: [id number] THIS REPORT FOR: cc: Mary Fontana MD, Lin W. MD ~ Vivek Antonio MD DATE OF SERVICE: 03/13/2020 REQUESTING PHYSICIAN: Jamila Ruelas MD HISTORY OF PRESENT ILLNESS: This is a 64-year-old female, past medical history includes a history of metastatic breast cancer. She in fact was recently admitted to this hospital for a metastatic left-sided pleural effusion. There was thoracentesis performed, which does show malignancy in the pleural fluid. The pathology report is in the records. The patient now over the last several days was again feeling increasingly short of breath. She also has had a cough. There is not much sputum. She also has had nausea and vomiting. There has been having difficulty swallowing and has had difficulty keeping fluids down. She does state that she has been having intermittent dysphagia for a while. She has previously received chemotherapy through an oncologist out of [place]. This morning, the patient therefore has had a thoracentesis performed. The patient also had an EGD performed where her esophagus was dilated. So after the procedure this afternoon the patient also had a video swallow, which did not show any obvious aspiration. As seen after these procedures, the patient still was short of breath. She was wearing 2 liters oxygen, but was saturating 96-98%. She also did still have a cough. The patient did not describe any other respiratory complaints. She has had some sleep complaints, which are at baseline. The patient does report that she has had some recent chills and change in appetite and weakness, but no fever. She has had some abdominal discomfort. REVIEW OF SYSTEMS: For 12 points is negative except as mentioned above. PAST MEDICAL AND SURGICAL HISTORY: Carcinoma of breast, bilateral mastectomy, detached retina, status post radiation and chemotherapy, hypertension, hyperlipidemia, mild obstructive sleep apnea, apnea-hypopnea index was around 5.5 on a sleep study performed last year, appendectomy, dental extractions, cholecystectomy, hysterectomy, C-sections x 2. She is an insulin-dependent diabetic. The patient is reported to have had a brief episode of atrial fibrillation after taking albuterol a long time ago. SOCIAL HISTORY: According to the records, she is a former smoker, but when I asked her directly, she told me that she is a lifetime nons[place] [address] CONSULTATION Name: MICHELLE ARANGO Room: [address] IN M.R.#: [id number] Admission: 03/12/20 Attend Phys: Jamila Ruelas MD Discharge: 03/15/20 Date of : 53 Report #: [id number] history of heavy alcohol use or illegal drug use. CURRENT MEDICATIONS: List in [facility] reviewed. HOME MEDICATIONS: List also in [employer] [facility] reviewed. ALLERGIES: SHE HAS HAD ATRIAL FIBRILLATION IN THE PAST INCLUDING AN EPISODE AFTER TAKING ALBUTEROL LEG CRAMPING WITH ZOCOR AND LIPITOR WELL CRESTOR. PHYSICAL EXAMINATION: GENERAL: She is alert, awake and oriented. VITAL SIGNS: Had a pulse of 87 and a blood pressure of 131/71. She was saturating 98-96% on 2 liters nasal cannula, respiratory rate 17-18, heart rate 87, afebrile with a temperature of 36.8. HEENT: Head is normocephalic and atraumatic. Pupils are equal and reactive. There is no throat erythema. NECK: Does not show raised JVP, asymmetry, mass or lymph nodes. CHEST: There is equal expansion on inspection and palpation. On auscultation, however, breath sounds are still decreased at the left lung base. The patient did cough several times during the exam. HEART: Regular. There is no murmur. ABDOMEN: Soft and nontender. EXTREMITIES: Lower extremities show minimal edema. No calf tenderness. SKIN: Dry and intact. NEUROLOGICAL: Moves all extremities bilaterally equally and spontaneously with no focal deficit identified. LABORATORY DATA: The patient's chest x-ray is reviewed, it does show a pleural effusion on the left side consistent with metastatic pleural effusion. Previous radiological imaging including CTA chest performed earlier this month, also in [facility] reviewed. Perfusion scan is showing decreased perfusion on the left side consistent with the pleural effusion with no additional findings. Swallow evaluation is as above. CT abdomen and pelvis report is also in [employer] [facility] and is reviewed. It was noted that the patient does have hydronephrosis and hydroureter. ASSESSMENT AND PLAN: 1. Metastatic pleural effusion, left-sided secondary to carcinoma breast. This pleural effusion has quickly reoccurred. Therefore, I recommend proceeding with placement of a PleurX catheter as allowing the pleural effusion to persist is likely to lead to it becoming organized and I did go ahead and therefore consulted Dr. Zafar; however, understand that IR may not be available this [address] [address] CONSULTATION Name: MICHELLE ARANGO Room: [address] IN [facility]#: [id number] Admission: 03/12/20 Attend Phys: Jamila Ruelas MD Discharge: 03/15/20 Date of : 53 Report #: [id number] weekend and it may in fact be desirable to wait a couple of days after the last thoracentesis before a PleurX catheter is placed and therefore potentially this could be performed on Monday. 2. Cough and shortness of breath. She still repeatedly coughing at the time of my evaluation. Thoracentesis by itself also does lead to a cough; however, there may also be a component of underlying bronchospasm. Therefore, I did give her 2 doses of Solu-Medrol. I understand that this will lead to a transient elevation in her blood glucoses. I ordered low dose Xopenex considering previous reported history of AFib after taking albuterol, but the dose could be increased if needed. I feel that overall this is fairly low risk. 3. Pulmonary infiltrates. These primarily appeared to be related to her malignancy. Regardless, I would go ahead and treat her with broad-spectrum antibiotic as well. Also ordered a sputum culture and nasal swab for methicillin-resistant Staphylococcus aureus. 4. Evaluation for thromboembolic phenomena. Recommend also doing venous Dopplers. She does have renal insufficiency and therefore, I would hold off on a CTA chest. 5. Dysphagia. We will defer followup to the GI service. 6. Mild renal insufficiency/hydronephrosis/hydroureter. Creatinine has been elevated previously as well, but had decreased to 2.1 in September. I would defer followup to the primary service. If not previously obtained, then the patient may benefit from an Urology consult. 7. Deep vein thrombosis prophylaxis/anticoagulation. The patient previously was on Eliquis likely for atrial fibrillation. I would recommend holding off on Eliquis until her PleurX catheter could be placed. Meanwhile, the patient can be treated with Lovenox. I would defer to the primary service as to whether prophylactic or full dose of Lovenox is administered. Thanks for this consultation. <ELECTRONICALLY SIGNED> By: Vivek Antonio MD 03/15/20 1906 2146Ajose Antonio MD /nt
== END 2020-03-15 14:45 | disposition home or self-care (01) | DRG 392 ==
LOC: M.ERS 09:50 → M.TBA-ER 13:33 → M.2W 19:08
PROVIDERS: Emergency Medicine Emergency Medical Services; Family Medicine; Internal Medicine Critical Care Medicine; ADMIT Internal Medicine; ATTEND Internal Medicine
PROC: 0D758ZZ Dilation of Esophagus, Via Natural or Artificial Opening Endoscopic (ICD-10-PCS; principal; 2020-03-13)
PROC: 0W9B3ZZ Drainage of Left Pleural Cavity, Percutaneous Approach (ICD-10-PCS; 2020-03-13)
PROC: 3E0G8GC Introduction of Other Therapeutic Substance into Upper GI, Via Natural or Artificial Opening Endoscopic (ICD-10-PCS; 2020-03-14)
DX: K29.70 Gastritis, unspecified, without bleeding (principal); J91.8 Pleural effusion in other conditions classified elsewhere; N13.30 Unspecified hydronephrosis; N13.4 Hydroureter; R65.10 Systemic inflammatory response syndrome (SIRS) of non-infectious origin without acute organ dysfunction; C79.51 Secondary malignant neoplasm of bone; K20.90 Esophagitis, unspecified without bleeding; I10 Essential (primary) hypertension; E78.5 Hyperlipidemia, unspecified; E87.5 Hyperkalemia; R13.10 Dysphagia, unspecified; E11.65 Type 2 diabetes mellitus with hyperglycemia; C50.919 Malignant neoplasm of unspecified site of unspecified female breast; Z90.710 Acquired absence of both cervix and uterus; Z90.49 Acquired absence of other specified parts of digestive tract; Z98.818 Other dental procedure status; Z79.4 Long term (current) use of insulin; Z90.13 Acquired absence of bilateral breasts and nipples; Z92.21 Personal history of antineoplastic chemotherapy; Z92.3 Personal history of irradiation; Z88.8 Allergy status to other drugs, medicaments and biological substances; Z87.891 Personal history of nicotine dependence; Z82.49 Family history of ischemic heart disease and other diseases of the circulatory system; Z20.822 Contact with and (suspected) exposure to COVID-19

== ENCOUNTER → 2020-03-18 | Outpatient (CLI) | payer OTHER, MEDICARE ==
[~2020-03-18] MED LIST changes: +*ELECTROLYTE REPLACE PO; +PEPCID20 MG PO; +PROTONIX40 M2 PO; +ZETIA10 MG PO
[2020-03-18 11:51] LABS: HEMATOCRIT 35.1 % (37.0-47.0); HEMOGLOBIN 11.8 gm/dL (12.0-15.0); MCH 31.3 pg (26.0-34.0); MCHC 33.5 g/dL (28.0-37.0); MCV 93.3 fL (80.0-100.0); MPV 6.5 fl. (7.2-11.1); RBC 3.76 mil/uL (4.20-5.00); RDW-CV 13.3 % (10.5-14.5); WBC 9.8 thou/uL (4.0-11.0)
[2020-03-18 11:59] VITALS: BP 148/57
[2020-03-18 12:11] LABS: CALCIUM 8.3 mg/dL (8.5-10.1); CREATININE 1.5 mg/dL (0.6-1.3); POTASSIUM 4.7 mmol/L (3.5-5.1)
[2020-03-18 12:16] LABS: APTT 23.4 Seconds (25.0-31.3); PROTIME 9.8 Seconds (9.20-11.50)
[2020-03-18 12:20] LABS: INR < 0.9
[2020-03-18 13:00] VITALS: BP 143/60
[2020-03-18 14:30] VITALS: BP 126/67
== END | disposition home or self-care (01) ==
LOC: M.INT 10:33
PROVIDERS: Radiology Diagnostic Radiology; ATTEND Family Medicine
DX: J90 Pleural effusion, not elsewhere classified (principal); I10 Essential (primary) hypertension; E11.9 Type 2 diabetes mellitus without complications; E78.5 Hyperlipidemia, unspecified; K21.9 Gastro-esophageal reflux disease without esophagitis; Z98.890 Other specified postprocedural states; Z79.899 Other long term (current) drug therapy; Z79.01 Long term (current) use of anticoagulants; Z79.4 Long term (current) use of insulin; Z90.710 Acquired absence of both cervix and uterus; Z90.49 Acquired absence of other specified parts of digestive tract; Z85.3 Personal history of malignant neoplasm of breast; Z88.8 Allergy status to other drugs, medicaments and biological substances

== ENCOUNTER → 2020-04-16 | Outpatient (CLI) | payer OTHER, MEDICARE | LOC: M.CT 10:53 | PROVIDERS: ATTEND Physician Assistant | DX: C71.1 Malignant neoplasm of frontal lobe (principal); R79.89 Other specified abnormal findings of blood chemistry; R22.9 Localized swelling, mass and lump, unspecified; I67.82 Cerebral ischemia; G93.89 Other specified disorders of brain; E04.2 Nontoxic multinodular goiter; R91.8 Other nonspecific abnormal finding of lung field; J90 Pleural effusion, not elsewhere classified; J43.9 Emphysema, unspecified; N20.0 Calculus of kidney; K43.9 Ventral hernia without obstruction or gangrene; Z79.899 Other long term (current) drug therapy ==

== ENCOUNTER 2020-04-29 09:57 | Emergency (ER) | payer OTHER, MEDICARE ==
[~2020-04-29] VITALS: Ht 160 cm; Wt 85.3 kg
[2020-04-29 10:48] LABS: ABSOLUTE LYMPHOCYTES 0.8 thou/uL (0.8-5.3); ABSOLUTE MONOCYTES 0.6 thou/uL (0.0-1.2); ABSOLUTE NEUTROPHILS 5.1 thou/uL (1.6-8.1); BASOPHILS 0.3 %; EOSINOPHILS 0.6 %; HEMATOCRIT 34.2 % (37.0-47.0); HEMOGLOBIN 11.7 gm/dL (12.0-15.0); LYMPHOCYTES 11.8 %; MCH 31.2 pg (26.0-34.0); MCHC 34.2 g/dL (28.0-37.0); MCV 91.3 fL (80.0-100.0); MONOCYTES 9.1 %; MPV 6.2 fl. (7.2-11.1); NUCLEATED RBCS 0 /100WBC; PLATELET COUNT* 274 thou/uL (150-400); POLYS 78.2 %; RBC 3.74 mil/uL (4.20-5.00); RDW-CV 14.6 % (10.5-14.5); WBC 6.5 thou/uL (4.0-11.0)
[2020-04-29 10:59] LABS: CALCIUM 9.4 mg/dL (8.5-10.1); POTASSIUM 4.9 mmol/L (3.5-5.1)
[2020-04-29 11:15] LABS: TOTAL BILIRUBIN 0.4 mg/dL (<0.1-1.0)
[2020-04-29] MEDS ORDERED: ZOFRAN ODT4 MG SUBLING (11:40)
[2020-04-29 11:55] VITALS: BP 150/86
--- NOTE | 2020-04-29 17:30 | EKG ---
[place] [address] ELECTROCARDIOGRAM REPORT Name: MICHELLE ARANGO Room: [facility]#: [id number] Admission: 04/29/20 Attend Phys: Discharge: 04/29/20 Date of : 53 Date of Service: 04/29/20 1015 Report #: [id number] THIS REPORT FOR: //name// [facility] ED Test Date: 2020-04-29 Test Time: 10:15:55 Pat Name: MICHELLE ARANGO Department: Room: Gender: Coal Handler: MARI : 1955 Requested By: Fidel Murrieta Order Number: [id number] MD: Vinh Sharif Measurements Intervals [place] Rate: 108 P: 45 [place]: 169 QRS: 50 QRSD: 86 T: 59 QT: 328 QTc: 440 Interpretive Statements Probable artifact Sinus tachycardia Low voltage, extremity leads Abnormal R-wave progression, late transition Compared to ECG 03/12/2020 11:04:49 Artifact is noted Electronically Signed On 04-29-2020 17:30:23 HARP REGULATOR by Vinh Sharif [email or web address] <ELECTRONICALLY SIGNED> By: Vinh Sharif MD, [facility] 04/29/20 1730 1015 1015 Vinh Sharif MD, [facility] /EPI
== END 2020-04-29 11:56 | disposition home or self-care (01) ==
LOC: M.ERS 09:57
PROVIDERS: Family Medicine
DX: R11.2 Nausea with vomiting, unspecified (principal); Z20.822 Contact with and (suspected) exposure to COVID-19; E11.9 Type 2 diabetes mellitus without complications; I10 Essential (primary) hypertension; E78.5 Hyperlipidemia, unspecified; Z88.8 Allergy status to other drugs, medicaments and biological substances; Z98.890 Other specified postprocedural states; Z90.710 Acquired absence of both cervix and uterus; Z90.49 Acquired absence of other specified parts of digestive tract; Z85.3 Personal history of malignant neoplasm of breast

== ENCOUNTER 2020-05-09 21:34 | Inpatient (IN) | payer OTHER, MEDICARE ==
[~2020-05-09] VITALS: Ht 160 cm; Wt 83.0 kg
--- NOTE | ~2020-05-09 | CON ---
[address] [address] CONSULTATION Name: NBAMICHELLE PAIZ Room: [address] IN ..#: [id number] Admission: 05/09/20 Attend Phys: Juvencio Phelps MD Discharge: Date of : 53 Report #: [id number] THIS REPORT FOR: cc: Nicole Mock Tammy RNP ~ Isabel Moreno MD DATE OF SERVICE: 05/13/2020 REASON FOR CONSULTATION: Breast cancer, nausea and vomiting. REQUESTING PHYSICIAN: Dr. Phelps. The patient was seen on 05/12/2020, this consultation was done on 05/13/2020, this is a late entry. 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 Oncology is consulted. She has history of achalasia and dysphagia. GI consult is on service, they think nausea and vomiting could be related to achalasia or dysphagia. She was diagnosed with breast cancer several years ago. Initially, she had adjuvant chemotherapy with Adriamycin and Cytoxan followed with Taxol. She has hormone positive disease. She was on endocrine therapy with Arimidex. In 2018, she developed metastatic disease with mainly bone metastatic disease. She was on several lines of systemic hormonal therapy. Most recently, she had disease progression in BRANCH SERVICE ASSOCIATE, she had several small BRANCH SERVICE ASSOCIATE lesions. She had SBRT. She was seen by primary oncologist at [facility]. She apparently has progression of disease in the bones. She was advised that she will need to start intravenous chemotherapy. She does not have complaints of headaches. Denies abdominal pain. Denies cough or shortness of breath. She has complaints of weakness, nausea and vomiting. Inability to keep p.o. fluids down. On admission, she had acute renal injury and atrial fibrillation. Atrial fibrillation resolved with diltiazem drip. Kidney function is getting better with intravenous fluids. The patient is scheduled to have gastric empty status tomorrow. PAST MEDICAL HISTORY: Significant for metastatic breast cancer, atrial fibrillation, anemia and achalasia. SOCIAL HISTORY: She does not smoke. Does not drink alcohol excessively. FAMILY HISTORY: [place] [address] CONSULTATION Name: MICHELLE ARANGO Room: [address] IN [facility]#: [id number] Admission: 05/09/20 Attend Phys: Juvencio Phelps MD Discharge: Date of : 53 Report #: [id number] REVIEW OF SYSTEMS: See above. PHYSICAL EXAMINATION: GENERAL: Reveals chronically ill-appearing woman, not in acute distress. VITAL SIGNS: Blood pressure 183/86, temperature 97.4 and respirations 18. NECK: Supple. HEART: Normal S1, S2. LUNGS: Clear. Left arm swollen due to lymphedema. MENTAL STATUS: Alert and oriented x 3. SKIN: Does not reveal any mass. There are soft tissue lesions in the left axilla as well as preauricular ____ metastatic breast cancer. LABORATORY DATA: White count 12.4, hemoglobin 8.9 and platelets 467. Sodium 136, potassium 5.3, BUN [address] of abdomen shows stable blastic lesions. ASSESSMENT AND PLAN: 1. Nausea and vomiting, unlikely related to BRANCH SERVICE ASSOCIATE metastatic disease. The patient recently had a brain imaging. It is not necessary to consider MRI. I agree with GI workup. 2. Metastatic breast cancer. The patient has failed several lines of hormonal therapy. She was advised she needs to go on IV cytotoxic chemotherapy. I advised her to consider oral chemotherapy with Xeloda. She does not believe she has ever had Xeloda. Continue follow up with primary care physician. Thank you very much for allowing me to participate in care of this patient. If you have any questions, please call me. By: 00 2107Isabel Moreno MD /chioma
[~2020-05-09 21:34] MED LIST changes: +ZOFRAN ODT4 MG SUBLING
[2020-05-09 21:41] VITALS: BP 140/71
[2020-05-09 22:17] LABS: HEMATOCRIT 32.4 % (37.0-47.0); HEMOGLOBIN 10.6 gm/dL (12.0-15.0); MCH 30.5 pg (26.0-34.0); MCHC 32.7 g/dL (28.0-37.0); MCV 93.2 fL (80.0-100.0); MPV 7.3 fl. (7.2-11.1); NUCLEATED RBCS 0 /100WBC; PLATELET COUNT* 430 thou/uL (150-400); RBC 3.47 mil/uL (4.20-5.00); RDW-CV 14.5 % (10.5-14.5); WBC 10.6 thou/uL (4.0-11.0)
[2020-05-09 22:26] LABS: CALCIUM 9.2 mg/dL (8.5-10.1); CREATININE 1.6 mg/dL (0.6-1.3); POTASSIUM 5.1 mmol/L (3.5-5.1)
[2020-05-09 22:30] LABS: APTT 23.9 Seconds (25.0-31.3)
[2020-05-09 22:31] LABS: ALBUMIN 2.1 g/dL (3.4-5.0); MAGNESIUM 2.5 mg/dL (1.8-2.4); TOTAL BILIRUBIN 0.4 mg/dL (<0.1-1.0); TOTAL PROTEIN 7.6 g/dL (6.4-8.2)
[2020-05-09] MEDS ORDERED: VERZENIO150 MG (22:53)
[2020-05-09] MEDS ORDERED: DEXAMETHASONE4 MG (22:54)
[2020-05-09] MEDS ORDERED: ONDANSETRON ODT8 MG PO (22:54)
[2020-05-09] MEDS ORDERED: PROTONIX40 M2 PO (22:55)
[2020-05-09] MEDS ORDERED: COMPAZINE10 MG PO (22:55)
[2020-05-09] MEDS ORDERED: PERCOCET 10-321 EAC1 (22:56)
[2020-05-09] MEDS ORDERED: HYDRALAZINE 2525 MG PO (22:56)
[2020-05-09] MEDS ORDERED: ZETIA10 MG (22:57)
[2020-05-09] MEDS ORDERED: BENADRYL25 MG PO (22:57)
[2020-05-09] MEDS ORDERED: LOMOTIL 2.5-0.01 TAB (22:57)
[2020-05-09] MEDS ORDERED: LOPRESSOR50 MG PO (22:58)
[2020-05-09] MEDS ORDERED: HYDROCODON-ACE1 EAC7 PO (22:59)
[2020-05-09] MEDS ORDERED: ELIQUIS5 MG PO (22:59)
[2020-05-09] MEDS ORDERED: TOUJEO SOL300 UNIT/1 (23:00)
[2020-05-09] MEDS ORDERED: DULCOLAX STOOL100 M1 (23:00)
[2020-05-09 23:06] LABS: ABSOLUTE LYMPHOCYTES 0.6 thou/uL (0.8-5.3); ABSOLUTE MONOCYTES 0.3 thou/uL (0.0-1.2); ABSOLUTE NEUTROPHILS 9.6 thou/uL (1.6-8.1); PLATELET ESTIMATE INCREASED; TOXIC GRANULATION 1+
[2020-05-10] VITALS (9 sets, daily range): BP systolic 97–140; BP diastolic 49–77
[2020-05-10] MEDS ORDERED: DEXAMETHASONE 44 M1 PO (02:40)
[2020-05-10] MEDS ORDERED: ZETIA10 MG PO (02:43)
[2020-05-10] MEDS ORDERED: DULCOLAX STOOL100 M1 PO (02:45)
[2020-05-10 08:09] LABS: CALCIUM 8.2 mg/dL (8.5-10.1); CREATININE 1.6 mg/dL (0.6-1.3); POTASSIUM 4.7 mmol/L (3.5-5.1)
[2020-05-10 08:12] LABS: MAGNESIUM 2.5 mg/dL (1.8-2.4); PHOSPHORUS* 1.9 mg/dL (2.5-4.9)
[2020-05-11] VITALS: BP 112/57
[2020-05-11 05:07] LABS: HEMATOCRIT 26.9 % (37.0-47.0); HEMOGLOBIN 8.9 gm/dL (12.0-15.0); MCH 30.7 pg (26.0-34.0); MCHC 33.1 g/dL (28.0-37.0); MCV 92.7 fL (80.0-100.0); MPV 7.3 fl. (7.2-11.1); RBC 2.91 mil/uL (4.20-5.00); RDW-CV 14.9 % (10.5-14.5); WBC 12.4 thou/uL (4.0-11.0)
[2020-05-11 05:26] LABS: ALBUMIN 1.8 g/dL (3.4-5.0); CALCIUM 7.4 mg/dL (8.5-10.1); CREATININE 1.6 mg/dL (0.6-1.3); MAGNESIUM 2.3 mg/dL (1.8-2.4); POTASSIUM 5.3 mmol/L (3.5-5.1); TOTAL BILIRUBIN 0.2 mg/dL (<0.1-1.0); TOTAL PROTEIN 6.5 g/dL (6.4-8.2)
[2020-05-11 08:00] VITALS: BP 136/64
[2020-05-11 16:39] VITALS: BP 136/68
--- NOTE | 2020-05-11 17:31 | EKG ---
[place] [address] ELECTROCARDIOGRAM REPORT Name: MICHELLE ARANGO Room: [address] ADM IN M.R.#: [id number] Admission: 05/09/20 Attend Phys: Juvencio Phelps, Discharge: Date of : 53 Date of Service: 05/09/20 2149 Report #: [id number] THIS REPORT FOR: //name// [facility] ED Test Date: 2020-05-09 Test Time: 21:49:02 Pat Name: MICHELLE ARANGO Department: Room: [facility] Gender: F Yarding Supervisor: SOBEIDA Nixon : 1955 Requested By: Dolores Washington Order Number: [id number] MD: Vinh Sharif Measurements Intervals [place] Rate: 133 P: [place]: QRS: 55 QRSD: 92 T: 29 QT: 306 QTc: 456 Interpretive Statements Atrial fibrillation Borderline low voltage, extremity leads Abnormal R-wave progression, late transition Compared to ECG 04/29/2020 10:15:55 Sinus tachycardia no longer present Electronically Signed On 05-11-2020 17:31:26 CDT by Vinh Sharif [email or web address] <ELECTRONICALLY SIGNED> By: Vinh Sharif MD, FACC 05/11/20 1731 48 48 Vinh Sharif MD, FACC /EPI
--- NOTE | 2020-05-11 17:32 | EKG ---
[place] [address] ELECTROCARDIOGRAM REPORT Name: MICHELLE ARANGO Room: [address] ADM IN M.R.#: [id number] Admission: 05/09/20 Attend Phys: Juvencio Phelps, Discharge: Date of : 53 Date of Service: 05/10/20 0032 Report #: [id number] THIS REPORT FOR: //name// [facility] ED Test Date: 2020-05-10 Test Time: 00:32:59 Pat Name: MICHELLE ARANGO Department: Room: [address] Gender: F Screw Machine Operator Single Spindle: PRAMOD : 1955 Requested By: Dolores Washington Order Number: [id number] Ameya MD: Darin Key Measurements Intervals [place] Rate: 143 P: [place]: QRS: 75 QRSD: 87 T: 35 QT: 298 QTc: 460 Interpretive Statements Atrial fibrillation Abnormal R-wave progression, late transition Baseline wander in lead(s) V3 Compared to ECG 05/09/2020 21:49:02 No significant changes Electronically Signed On 05-11-2020 17:32:17 CDT by Darin Key [email or web address] <ELECTRONICALLY SIGNED> By: Darin Key MD, FACC 05/11/20 1732 Darin Key MD, FACC /EPI
[2020-05-11 20:00] VITALS: BP 156/70
[2020-05-12 00:15] VITALS: BP 183/86
[2020-05-12 13:41] LABS: HEMATOCRIT 30.1 % (37.0-47.0); HEMOGLOBIN 9.9 gm/dL (12.0-15.0); MCH 29.7 pg (26.0-34.0); MCHC 32.8 g/dL (28.0-37.0); MCV 90.5 fL (80.0-100.0); MPV 7.1 fl. (7.2-11.1); RBC 3.33 mil/uL (4.20-5.00)
[2020-05-12 13:52] LABS: ALBUMIN 2.3 g/dL (3.4-5.0); CALCIUM 8.2 mg/dL (8.5-10.1); CREATININE 1.7 mg/dL (0.6-1.3); MAGNESIUM 2.6 mg/dL (1.8-2.4); POTASSIUM 4.7 mmol/L (3.5-5.1); TOTAL BILIRUBIN 0.1 mg/dL (<0.1-1.0); TOTAL PROTEIN 7.1 g/dL (6.4-8.2)
[2020-05-12 16:21] VITALS: BP 124/67
[2020-05-12 20:00] VITALS: BP 146/52; BP 161/83
[2020-05-13 08:00] VITALS: BP 175/87
[2020-05-13 17:11] VITALS: BP 153/77
[2020-05-13 21:00] VITALS: BP 154/74
[2020-05-14 04:44] LABS: HEMATOCRIT 30.9 % (37.0-47.0); MCH 29.6 pg (26.0-34.0); MCHC 32.2 g/dL (28.0-37.0); MCV 92.1 fL (80.0-100.0); MPV 6.9 fl. (7.2-11.1); RBC 3.36 mil/uL (4.20-5.00); RDW-CV 15.4 % (10.5-14.5); WBC 15.4 thou/uL (4.0-11.0)
[2020-05-14 05:08] LABS: ALBUMIN 2.2 g/dL (3.4-5.0); CALCIUM 7.2 mg/dL (8.5-10.1); CREATININE 1.3 mg/dL (0.6-1.3); MAGNESIUM 2.3 mg/dL (1.8-2.4); POTASSIUM 5.3 mmol/L (3.5-5.1); TOTAL BILIRUBIN 0.2 mg/dL (<0.1-1.0); TOTAL PROTEIN 6.6 g/dL (6.4-8.2)
[2020-05-14 08:00] VITALS: BP 117/58
[2020-05-14 15:18] VITALS: BP 136/66
[2020-05-14 20:00] VITALS: BP 139/66
[2020-05-15 03:18] LABS: URINE BILIRUBIN NEGATIVE (Negative); URINE BLOOD NEGATIVE (Negative); URINE CLARITY CLEAR; URINE COLOR YELLOW; URINE GLUCOSE-RANDOM NEGATIVE (Negative); URINE KETONES NEGATIVE (Negative); URINE LEUKOCYTES-REFLEX NEGATIVE (Negative); URINE NITRITE-REFLEX NEGATIVE (Negative); URINE PROTEIN 1+ (Negative); URINE UROBILINOGEN 0.2 E.U./dl (0.2-1.0)
[2020-05-15 08:00] VITALS: BP 136/87
[2020-05-15 16:00] VITALS: BP 140/56
[2020-05-15 16:30] VITALS: BP 136/87
[2020-05-15 20:00] VITALS: BP 132/71
[2020-05-16 08:00] VITALS: BP 147/73
[2020-05-16] MEDS ORDERED: REGLAN 10 MG TA10 MG PO (09:05)
[2020-05-16 11:46] VITALS: BP 136/87
[2020-05-16 11:47] VITALS: BP 136/87
== END 2020-05-16 13:25 | disposition home health service (06) | DRG 177 ==
LOC: M.ERS 21:34 → M.ORTHSURG 23:55 → M.TBA-ER 23:55 → M.2W 23:55 → M.ORTHSURG 05-11 20:00
PROVIDERS: Internal Medicine; Personal Emergency Response Attendant; ADMIT Internal Medicine; ATTEND Internal Medicine
DX: J15.6 Pneumonia due to other Gram-negative bacteria (principal); E11.00 Type 2 diabetes mellitus with hyperosmolarity without nonketotic hyperglycemic-hyperosmolar coma (NKHHC); N17.0 Acute kidney failure with tubular necrosis; I48.20 Chronic atrial fibrillation, unspecified; I10 Essential (primary) hypertension; E78.5 Hyperlipidemia, unspecified; C50.919 Malignant neoplasm of unspecified site of unspecified female breast; E66.9 Obesity, unspecified; E11.65 Type 2 diabetes mellitus with hyperglycemia; R13.10 Dysphagia, unspecified; K30 Functional dyspepsia; K22.0 Achalasia of cardia; E11.43 Type 2 diabetes mellitus with diabetic autonomic (poly)neuropathy; Z20.822 Contact with and (suspected) exposure to COVID-19; K31.84 Gastroparesis; Z88.8 Allergy status to other drugs, medicaments and biological substances; Z92.3 Personal history of irradiation; Z90.710 Acquired absence of both cervix and uterus; Z90.49 Acquired absence of other specified parts of digestive tract; Z68.32 Body mass index [BMI] 32.0-32.9, adult; Z79.4 Long term (current) use of insulin; Z85.3 Personal history of malignant neoplasm of breast; Z90.13 Acquired absence of bilateral breasts and nipples; Z86.16 Personal history of COVID-19; Z92.21 Personal history of antineoplastic chemotherapy